=== PATIENT | male | born 1955 | race Two or more races ===

== ENCOUNTER 2019-06-13 17:53 | Inpatient (IN) | payer MEDICAID ==
[~2019-06-13] VITALS: Ht 165.1 cm; Wt 70.0 kg
[2019-06-13] MEDS ORDERED: ONDANSETRON HCL 4 MG/2 ML VIAL ONE (18:11)
[2019-06-13] MEDS ORDERED: MORPHINE SULF INJ 2 MG/ML SYRINGE 1ML ONE (18:11)
[2019-06-13] MEDS ORDERED: ONDANSETRON HCL 4 MG/2 ML VIAL IV ONE ×2 (18:15→20:15)
[2019-06-13] MEDS ORDERED: MORPHINE SULF INJ 2 MG/ML SYRINGE 1ML IV ONE ×2 (18:15→20:15)
[2019-06-13 18:44] LABS: Basophils # (auto) 0.1 uL; Basophils % (auto) 0.4 % (0.0-2.0); Eosinophils # (auto) 0.1 uL; Eosinophils % (auto) 0.8 % (0.0-7.0); Hematocrit 44.2 % (41.0-53.0); Hemoglobin 14.4 g/dL (13.5-17.5); Lymphocytes # (auto) 3.7 uL; Lymphocytes % (auto) 27.8 % (10.0-50.0); Mean Corpuscular Hemoglobin 29.4 pg (28.0-32.0); Mean Corpuscular Hgb Conc. 32.6 g/dL (32.0-36.0); Mean Corpuscular Volume 90.3 fL (80.0-100.0); Monocytes # (auto) 0.8 uL; Monocytes % (auto) 5.9 % (0.0-12.0); Neutrophils # (auto) 8.6 uL; Neutrophils % (auto) 65.1 % (37.0-80.0); Nucleated Red Blood Cells % 0.1 %; Platelet Count (auto) 273 10^3/uL (140-450); Red Cell Distribution Width 14.3 % (11.8-14.3); White Blood Cell 13.2 10^3/uL (4.4-10.8)
[2019-06-13 19:00] LABS: Albumin 3.7 g/dL (3.4-5.0); Anion Gap 16 (5-15); Blood Urea Nitrogen 29 mg/dL (7-18); Calcium 8.4 mg/dL (8.5-10.1); Carbon Dioxide 20 mmol/L (21-32); Chloride 106 mmol/L (98-107); Glucose 251 mg/dL (74-106); Potassium 3.4 mmol/L (3.5-5.1); Sodium 142 mmol/L (136-145)
[2019-06-13 19:02] LABS: Alanine Aminotransferase 131 U/L (16-61); Aspartate Aminotransferase 123 U/L (15-37); BUN/Creatinine Ratio 18.4; GFR African American 57 mL/min; GFR Non-African American 47 mL/min; INR 1.04 (0.9-1.15); Partial Thromboplastin Time 24.9 sec (23.64-32.05)
[2019-06-13 19:06] LABS: Alkaline Phosphatase 92 U/L (45-117); Bilirubin, Total 0.4 mg/dL (0.2-1.0); Total Protein 6.9 g/dL (6.4-8.2)
[2019-06-13] MEDS ORDERED: AMIODARONE HCL 900 MG in DEXTROSE 500 ML IV SCH (20:30)
[2019-06-13] MEDS ORDERED: POTASSIUM CHL 20 Meq TABLET PO ONE (21:15)
[2019-06-13] MEDS ORDERED: TEMAZEPAM 15 MG CAP PO PRN (21:15)
[2019-06-13] MEDS ORDERED: ONDANSETRON HCL 4 MG/2 ML VIAL IV PRN (21:15)
[2019-06-13] MEDS ORDERED: MORPHINE SULF INJ 2 MG/ML SYRINGE 1ML IV PRN (21:15)
[2019-06-13] MEDS ORDERED: DEXTROSE (50%) 50ML SYRG IV PRN (21:15)
[2019-06-13] MEDS ORDERED: NITROGLYCERIN 0.4 MG SL TAB SL PRN (21:15)
[2019-06-13] MEDS ORDERED: ACETAMINOPHEN 325 MG TAB PO PRN (21:15)
[2019-06-13] MEDS ORDERED: PRAVASTATIN SODIUM 20 MG TAB PO SCH (22:00)
[2019-06-13] MEDS: SODIUM CHLORIDE 0.9% 1,000 ML IV SCH (22:09)
[2019-06-13] MEDS ORDERED: ATORVASTATIN 20 MG TAB PO ONE (22:15)
--- NOTE | 2019-06-13 22:40 | NUR ---
Admit to [facility] admitted to [facility] via gurney on child monitor, and portable 02. Patient transferred to bed, connected to unit monitoring and oxygen, and weighed by bedscale. Patient oriented to Suyz Vail, primary RN, unit, room, bed, and unit policies regarding patient care and visiting hours. All questions and concerns addressed, patient verbalized understanding. NOTE: PIV's to the right AC infusing amiodarone drip @ 33 ml/hr and NS @ 75 ml/hr, IO to the left lower leg noted.
[2019-06-13 23:46] VITALS: BP 135/80
[2019-06-14] VITALS: BP 128/84
--- NOTE | 2019-06-14 | NUR ---
accucheck 180, refused insulin coverage, per pt his blood sugar drops below 60's at around 0400.
[2019-06-14] MEDS ORDERED: INSU1INJ19 SC (01:19)
[2019-06-14] MEDS ORDERED: GABA-339 PO (01:19)
[2019-06-14] MEDS ORDERED: METF-371 PO (01:19)
[2019-06-14] MEDS ORDERED: PRAV20TA3 PO (01:19)
[2019-06-14] MEDS ORDERED: METO-158 PO (01:19)
[2019-06-14] MEDS ORDERED: LISI2.5T47 PO (01:19)
[2019-06-14] MEDS: HYDROcodone-ACET 5/325MG TAB PO PRN ×2 (01:51→07:14)
--- NOTE | 2019-06-14 01:51 | NUR ---
C/O CHEST PAIN FROM COMPRESSION, SCALE 8/10, NORCO 5MG GIVEN PO ORDERED PRN.
[2019-06-14 04:00] VITALS: BP 124/73
[2019-06-14 05:48] LABS: Basophils # (auto) 0 uL; Basophils % (auto) 0.1 % (0.0-2.0); Eosinophils # (auto) 0 uL; Hematocrit 40.5 % (41.0-53.0); Hemoglobin 13.5 g/dL (13.5-17.5); Lymphocytes # (auto) 0.7 uL; Lymphocytes % (auto) 4.5 % (10.0-50.0); Mean Corpuscular Hemoglobin 29.5 pg (28.0-32.0); Mean Corpuscular Hgb Conc. 33.3 g/dL (32.0-36.0); Mean Corpuscular Volume 88.7 fL (80.0-100.0); Monocytes % (auto) 6.6 % (0.0-12.0); Neutrophils # (auto) 13.9 uL; Neutrophils % (auto) 88.8 % (37.0-80.0); Platelet Count (auto) 255 10^3/uL (140-450); Red Blood Cells 4.57 10^6/uL (4.5-5.90); Red Cell Distribution Width 13.8 % (11.8-14.3); White Blood Cell 15.6 10^3/uL (4.4-10.8)
[2019-06-14] MEDS: ACCU-CHEK COMFORT CURVE STRIP VI SCH ×5 (06:00→23:36)
[2019-06-14 06:08] LABS: BUN/Creatinine Ratio 32.7; Calcium 7.8 mg/dL (8.5-10.1); Potassium 4.4 mmol/L (3.5-5.1)
[2019-06-14] MEDS: InsuLIN REG 1unit/0.01ml Soln (100units/ml) SC SCH ×4 (06:42→18:42)
--- NOTE | 2019-06-14 07:00 | NUR ---
INTRA OSSEOUS IV IN THE LEFT LEG REMOVED, PRESSURE DRESSING APPLIED TO SITE
--- NOTE | 2019-06-14 07:50 | NUR ---
REPORT REPORT RECEIVED FROM NIGHT RNCHAN. PT RESTING IN BED WITH C/O CHEST DISCOMFORT. RECEIVED A [employer] AT 0714. WILL GIVE IT A BIT LONGER TO WORK. PT AWARE.
[2019-06-14 08:00] VITALS: BP 135/74
--- NOTE | 2019-06-14 08:15 | NUR ---
ASSESSMENT PT AWAKE AND A/O X3. ABLE TO MOVE ALL EXTREMITIES AND HELP MOVE SELF IN BED. C/O CHEST DISCOMFORT AND PT DID RECEIVE CPR AND WAS DEFIBRILLATED X2 YESTERDAY. TOO EARLY TO MEDICATE BY CURRENT ORDERS. LUNGS CLEAR THROUGHOUT. O2 AT 2 L/M VIA NC BUT PT CURRENTLY HAS IT OFF AND O2 SAT IS 100%. WILL CONTINUE TO MONITOR. TELE SR AT 92. PALPABLE PULSES TO ALL EXTREMITIES. NO EDEMA NOTED. ABD SOFT WITH + BOWEL SOUNDS. LAST BM WAS 06/13. PT VOIDS VIA URINAL. CURRENTLY 350 ML CLEAR YELLOW URINE. PT WITH NS AT 75 ML/HR, WITH LAC IV SITE BENIGN. ALSO WITH #20 TO THE RIGHT HAND.
[2019-06-14] MEDS ORDERED: GABAPENTIN 300 MG CAP PO SCH (10:00)
[2019-06-14] MEDS: PANTOPRAZOLE 40 MG TAB PO SCH (10:11)
[2019-06-14] MEDS: ASPirin 81 mg TAB PO SCH (10:11)
[2019-06-14] MEDS: METOPROLOL SUCCINATE XL 50 MG TAB PO SCH (10:11)
[2019-06-14] MEDS: LISINOPRIL 5 MG TAB PO SCH (10:12)
--- NOTE | 2019-06-14 11:30 | NUR ---
INSULIN HELD PT REFUSED INSULIN ATER DUE TO TENDENCY TO HAVE LOW BLOOD GLUCOSE THROUGHOUT NIGHT. Addendum: 06/15/19 at 0131 by THAIS CLEVELAND RN RN AFTER BS OF 166 Addendum: 06/15/19 at 0132 by THAIS CLEVELAND RN RN MISTAKEN TIME. 2330
[2019-06-14 12:00] VITALS: BP 145/76
--- NOTE | 2019-06-14 12:00 | NUR ---
RECEIVED A PHONE CALL FROM DR ZAMBRANO, PT'S QA INTERN. INFORMED HIM OF EVENTS LEADING UP TO THE PT'S ADMISSION TO THE HOSPITAL. HE STATES TO LET DR WOOD DO THE ANGIOGRAM AND HE WILL RADAR AIR TRAFFIC CONTROLLER CARE AFTER , IF OKAY WITH DR WOOD. NOTIFIED RIC LOPEZ, CARDIOLOGY BILINGUAL SPEECH LANGUAGE PATHOLOGIST.
[2019-06-14] MEDS: MORPHINE SULF INJ 2 MG/ML SYRINGE 1ML IV PRN (12:05)
[2019-06-14] MEDS: SODIUM CHLORIDE 0.9% 1,000 ML IV SCH ×2 (12:14→23:55)
[2019-06-14] MEDS ORDERED: KETOROLAC TROMETH 30 MG/ML 1ML VIAL IV ONE (12:45)
[2019-06-14] MEDS ORDERED: CLOPIDOGREL 300 MG TAB PO ONE (15:45)
[2019-06-14] MEDS ORDERED: ENOXAPARIN SOD 60 MG/0.6 ML SYRINGE SC ONE (15:45)
[2019-06-14] MEDS ORDERED: ASPirin 81 mg TAB PO ONE (15:45)
[2019-06-14 16:00] VITALS: BP 126/71
--- NOTE | 2019-06-14 16:00 | NUR ---
PT SEEN AND EXAMINED BY DR ZAMBRANO. HE WAS MADE AWARE OF PENDING ANGIOGRAM TOMORROW BUT NO TIME YET. HE STATED THAT IF IT IS DONE EARLY THEN HE CAN PLACE A DEFIBRILLATOR AT 1400. WILL HAE THE DAY RN TOMORROW CHEK WITH AIRCRAFT RIGGING AND CONTROLS MECHANIC AND TRY TO COORDINATE THAT.
--- NOTE | 2019-06-14 19:02 | NUR ---
CONSENTS SIGNED FOR TOMORROW'S [facility].
[2019-06-14] MEDS ORDERED: DEXTROSE (50%) 50ML SYRG IV PRN (19:15)
--- NOTE | 2019-06-14 19:15 | NUR ---
OPENING PT AWAKE AND A/O X4. ABLE TO MOVE ALL EXTREMITIES AND HELP MOVE SELF IN BED. LUNGS CLEAR THROUGHOUT, O2 AT 2 L/M VIA NC 94%. SR ON CRYPTOLOGIC TECHNICIAN TECHNICAL. PALPABLE PULSES X4 EXTREMITIES. NO EDEMA NOTED. ABD SOFT, BOWEL SOUNDS PRESENT. PT VOIDS VIA URINAL. PT WITH NS AT 75 ML/HR. EDUCATED TO USE CALL LIGHT FOR ANY ASSISTANCE BEFORE GETTING OUT OF BED. VERBALIZED UNDERSTANDING. BED IN LOWEST LOCKED POSITION. IN FULL VIEW OF NURSES STATION. VSS. NO PAIN NOTED AT THIS TIME. WILL CONTINUE TO MONITOR.
--- NOTE | 2019-06-14 19:46 | NUR ---
REPORT REPORT GIVEN TO THAIS FARRIS RN.
[2019-06-14 20:33] VITALS: BP 138/80
[2019-06-14] MEDS ORDERED: ATORVASTATIN 20 MG TAB PO SCH (22:00)
[2019-06-14] MEDS: ENOXAPARIN SOD 80 MG/0.8ML SYRINGE SC SCH (22:00)
--- NOTE | 2019-06-14 22:00 | NUR ---
TORADOL RESPONDED WELL TO TORADOL, CHEST WALL PAIN ALLEVIATED. PAIN FROM 9/0-10 TO 0/0-10
[2019-06-14] MEDS: GABAPENTIN 300 MG CAP PO SCH (22:02)
--- NOTE | 2019-06-14 23:30 | NUR ---
INSULIN HELD PT REFUSED INSULIN AFTER GLUCOSE OF 166, DUE TO TENDENCY TO HAVE LOW BLOOD GLUCOSE THROUGHOUT NIGHT.
--- NOTE | 2019-06-15 00:23 | NUR ---
IV insertion IV access obtained, via clean sterile technique by inserting 20 gauge catheter at THE RIGHT FOREARM after 1 attempt. IV secured properly. No trauma to site. Patient tolerated well. IV FLUSHED, PATENT AND SALINE LOCKED.
[2019-06-15 00:26] VITALS: BP 143/74
[2019-06-15] MEDS: SODIUM CHLORIDE 0.9% 1,000 ML IV SCH ×2 (01:59→18:00)
[2019-06-15] MEDS: MORPHINE SULF INJ 2 MG/ML SYRINGE 1ML IV PRN (03:20)
[2019-06-15] MEDS ORDERED: KETOROLAC TROMETH 30 MG/ML 1ML VIAL IV PRN (03:45)
[2019-06-15 04:00] VITALS: BP 134/79
[2019-06-15] MEDS: ACCU-CHEK COMFORT CURVE STRIP VI SCH ×4 (05:18→23:54)
[2019-06-15] MEDS: InsuLIN REG 1unit/0.01ml Soln (100units/ml) SC SCH ×5 (05:36→23:54)
[2019-06-15 05:56] LABS: Basophils # (auto) 0 uL; Basophils % (auto) 0.3 % (0.0-2.0); Eosinophils # (auto) 0.2 uL; Eosinophils % (auto) 1.8 % (0.0-7.0); Hematocrit 36.1 % (41.0-53.0); Hemoglobin 12.2 g/dL (13.5-17.5); Lymphocytes # (auto) 1.5 uL; Lymphocytes % (auto) 12.7 % (10.0-50.0); Mean Corpuscular Hemoglobin 30.1 pg (28.0-32.0); Mean Corpuscular Hgb Conc. 33.9 g/dL (32.0-36.0); Mean Corpuscular Volume 88.8 fL (80.0-100.0); Monocytes % (auto) 8.4 % (0.0-12.0); Neutrophils # (auto) 8.8 uL; Neutrophils % (auto) 76.8 % (37.0-80.0); Platelet Count (auto) 206 10^3/uL (140-450); Red Blood Cells 4.06 10^6/uL (4.5-5.90); Red Cell Distribution Width 14.1 % (11.8-14.3); White Blood Cell 11.5 10^3/uL (4.4-10.8)
[2019-06-15 06:05] LABS: INR 1.06 (0.9-1.15)
[2019-06-15 06:10] LABS: Calcium 7.5 mg/dL (8.5-10.1); Magnesium 2.2 mg/dL (1.6-2.6); Potassium 4.6 mmol/L (3.5-5.1)
[2019-06-15 06:12] LABS: BUN/Creatinine Ratio 23.3
[2019-06-15 06:15] LABS: Bilirubin, Total 0.6 mg/dL (0.2-1.0); Total Protein 5.8 g/dL (6.4-8.2)
--- NOTE | 2019-06-15 07:30 | NUR ---
RECEIVED PATIENT SITTING UP IN THE BED, O2 AT 2L BY N/C, A/O TIMES 4, USED HOSPITAL STAFF TO TRANSLATE FOR ME, STATES HE CAN USE THE URINAL, AND BR, no pain at this time,
--- NOTE | 2019-06-15 07:50 | NUR ---
SPOKE WITH JOSEPH BANEGAS IN THE WATER SOFTENER INSTALLER AND STATED THE PATIENT WOULD NOT BE GOING FOR THE HEART CATH THIS MORNING MAYBE NOT UNTIL 1200 AND STATED TO FEED HIM A LIGHT BREAKFAST, CEREAL WAS GIVEN AND A JELL-O
[2019-06-15 08:00] VITALS: BP 141/87
--- NOTE | 2019-06-15 08:05 | NUR ---
DR PROOD IN TO SEE THE PATIENT AND STATED TO GET A DRUG SCREEN DONE
--- NOTE | 2019-06-15 08:30 | NUR ---
patient was given jell-0 and cereal, ate without any problem
--- NOTE | 2019-06-15 08:30 | NUR ---
INTO VISIT WITH THE PATIENT, WHO IS SITTING UP ON THE SIDE OF THE BED EATING A LIGHT BREAKFAST
--- NOTE | 2019-06-15 09:09 | NUR ---
IRMA Ferrer HUMAN RESOURCES OPERATIONS COORDINATOR IN TO SEE THE PATIENT
[2019-06-15] MEDS: ENOXAPARIN SOD 80 MG/0.8ML SYRINGE SC SCH ×2 (09:15→21:27)
[2019-06-15] MEDS: ASPirin 81 mg TAB PO SCH (09:32)
[2019-06-15] MEDS: METOPROLOL SUCCINATE XL 50 MG TAB PO SCH (09:33)
[2019-06-15] MEDS: PANTOPRAZOLE 40 MG TAB PO SCH (09:33)
[2019-06-15] MEDS: LISINOPRIL 5 MG TAB PO SCH (09:34)
[2019-06-15] MEDS: HYDROcodone-ACET 5/325MG TAB PO PRN (09:35)
--- NOTE | 2019-06-15 09:35 | NUR ---
EXPLAIN MEDICATIONS TO THE PATIENT REGARDING THE DOSAGE, USAGE AND THE SIDE EFFECTS, TRANSLATED TO HIM AND THEY BOTH VERBALIZED THEY UNDERSTOOD AND GAVE NORCO FOR PAIN TO THE CHEST 05/24 STATES IT'S MUSCLE PAIN FROM HAVING THE CPR
[2019-06-15] MEDS ORDERED: CLOPIDOGREL BISULFATE 75 MG TAB PO SCH (10:00)
[2019-06-15 10:06] LABS: Alcohol, Urine < 3.0 mg/dL (0-5); Amphetamine Screen, Urine NEGATIVE (NEGATIVE); Barbiturate Scree,Urine NEGATIVE (NEGATIVE); Benzodiazephine Screen, Urine NEGATIVE (NEGATIVE); Cannabinoid Screen, Urine NEGATIVE (NEGATIVE); Cocaine Screen, Urine NEGATIVE (NEGATIVE); Opiate Scree,Urine NEGATIVE (NEGATIVE); Phencyclidine Screen, Urine NEGATIVE (NEGATIVE)
--- NOTE | 2019-06-15 10:30 | NUR ---
RECHECKED B/P AFTER MEDS 140/86
--- NOTE | 2019-06-15 10:30 | NUR ---
SITTING UP IN THE CHAIR BESIDE THE WINDOW WITH
--- NOTE | 2019-06-15 11:30 | NUR ---
SITTING UP IN THE CHAIR BESIDE HIM
[2019-06-15 12:00] VITALS: BP 144/86
--- NOTE | 2019-06-15 12:16 | NUR ---
BS 144 DISCUSSED WITH PATIENT AND HIS AND THEY REFUSED INSULIN BECAUSE HE IS NPO AND STATES HE'S SUGAR WILL GO DOWN WITH INSULIN AND NO FOOD, SITTING UP IN THE CHAIR
--- NOTE | 2019-06-15 13:00 | NUR ---
gotten back into the bed
--- NOTE | 2019-06-15 13:13 | NUR ---
mediated with Toradol 15mg waiting for patient to go to laborer
--- NOTE | 2019-06-15 14:09 | NUR ---
patient states he is having no pain, explain to him and his that the bed laborer is saying it will be another hour wait i that i was sorry, verblized that they understood
[2019-06-15] MEDS ORDERED: IOHEXOL 350 MG/ML 100ML IJ ONE (14:31)
[2019-06-15] MEDS ORDERED: LIDOCAINE 2%HCL (LOCAL ANESTH.) INJ 20ML MDV ONE (14:31)
--- NOTE | 2019-06-15 14:31 | NUR ---
RADIOLOGY TECH PERSONNEL HERE TALKING TO THE PATIENT AND ARE GOING TO TAKE HIM T O THE RADIOLOGY TECH
--- NOTE | 2019-06-15 14:55 | NUR ---
TAKEN TO THE RUFFLING MACHINE OPERATOR BY THE BED
[2019-06-15] MEDS ORDERED: SODIUM CHL 0.9% 0 ML ONE (14:57)
[2019-06-15] MEDS ORDERED: ANGIOMAX 250 MG VIAL IV ONE (14:57)
[2019-06-15] MEDS ORDERED: MIDAZOLAM HCL 1MG/1ML-2 ML VIAL ONE (14:57)
[2019-06-15] MEDS ORDERED: fentaNYL CITRATE 100 MCG/2 ML VL ONE (14:57)
[2019-06-15 16:05] VITALS: BP 149/90
--- NOTE | 2019-06-15 16:08 | NUR ---
PATIENT BACK FROM THE ASSOCIATE DIRECTOR FINANCE WITH DIAGNOSIS OF MULTI VESSEL DISEASE AND DR WOO CONSULTED FOR CABG AND PATIENT BOTH AWARE ,DRESSING TO THE RT GROIN DRY AND INTACT SIT BENIGN
--- NOTE | 2019-06-15 16:15 | NUR ---
IN TO SEE THE PATIENT
--- NOTE | 2019-06-15 17:30 | NUR ---
DAUGHTERS IN TO VISIT WITH THE PATIENT RT GROIN SITE BENIGN SOFT TO THE TOUCH AND DRESSING DRY AND INTACT, NO COMPLAINTS OF PAIN REMINDED TO KEEP THE RT LEG STRAIGHT
--- NOTE | 2019-06-15 18:00 | NUR ---
DR JACKSON IN TO SEE THE PATIENT AND GAVE ORDERS, PATIENT SITTING UP ON THE SIDE OF THE BED
--- NOTE | 2019-06-15 18:20 | NUR ---
DR ZAMBRANO INTO SEE THE PATIENT AND ORDERED A LIFE VEST FOR WHEN HE GOES HOME, WHICH WAS ORDERED
--- NOTE | 2019-06-15 18:30 | NUR ---
PATIENT SITTING UP IN THE CHAIR EATING HIS DINNER, , STATES HE WAS SO HUNGRY, NS INFUSING INTO THE 50ML/HR RFA BY THE IV PUMP, GETS UP TO THE BR, DRESSING TO THE RT GROIN DRY AND INTACT, LFA 20G SALINE LOCK FLUSHED AND PATENT, O2 BY R/A, WILL CONTINUE TO MONITOR AND GIVE REPORT TOT HE NEXT SHIFT
--- NOTE | 2019-06-15 19:00 | NUR ---
OPENING NOTE ASSUMED CARE OF PATIENT AT THIS TIME. REPORT RECEIVED FROM DAY SHIFT RN. POC REVIEWED. HEAD TO TOE ASSESSMENT COMPLETE, SEE INTERVENTION SPREADSHEET FOR COMPLETE DETAILS. RECEIVED PT ALERT AND ORIENTED X. PT AMBULATORY. IV SITES BENIGN. VSS. URINAL AT BEDSIDE. BED LOCKED AND IN LOWEST POSITION, SAFETY PRECAUTIONS IN PLACE. WILL MONITOR PT CAREFULLY.
[2019-06-15 20:00] VITALS: BP 157/83
[2019-06-15] MEDS: HYDROcodone-ACET 5/325MG TAB PO SCH (21:26)
[2019-06-15] MEDS: ATORVASTATIN 20 MG TAB PO SCH (21:26)
[2019-06-15] MEDS: ALPRAZolam 0.25 MG TAB PO SCH (21:26)
[2019-06-15] MEDS: GABAPENTIN 300 MG CAP PO SCH (21:27)
--- NOTE | 2019-06-15 21:45 | NUR ---
PT TAKEN TO CT AND RETURNED TO [facility] 265 WITH NO INCIDENT Addendum: 06/15/19 at 2219 by ALBERTO KELLEY RN *ROOM
[2019-06-15] MEDS ORDERED: HYDROcodone-ACET 5/325MG TAB PO PRN (22:00)
[2019-06-16] VITALS (8 sets, daily range): BP systolic 133–158; BP diastolic 75–91
[2019-06-16] MEDS: HYDROcodone-ACET 5/325MG TAB PO SCH ×6 (02:00→22:56)
[2019-06-16 05:24] LABS: Basophils # (auto) 0 uL; Basophils % (auto) 0.4 % (0.0-2.0); Eosinophils # (auto) 0.3 uL; Eosinophils % (auto) 2.8 % (0.0-7.0); Hematocrit 37.1 % (41.0-53.0); Hemoglobin 12.5 g/dL (13.5-17.5); Lymphocytes # (auto) 1.7 uL; Lymphocytes % (auto) 17.8 % (10.0-50.0); Mean Corpuscular Hemoglobin 29.7 pg (28.0-32.0); Mean Corpuscular Hgb Conc. 33.8 g/dL (32.0-36.0); Mean Corpuscular Volume 87.9 fL (80.0-100.0); Monocytes # (auto) 0.9 uL; Monocytes % (auto) 9.3 % (0.0-12.0); Neutrophils # (auto) 6.5 uL; Neutrophils % (auto) 69.7 % (37.0-80.0); Platelet Count (auto) 222 10^3/uL (140-450); Red Blood Cells 4.22 10^6/uL (4.5-5.90); Red Cell Distribution Width 13.8 % (11.8-14.3); White Blood Cell 9.4 10^3/uL (4.4-10.8)
[2019-06-16 05:52] LABS: Potassium 4.2 mmol/L (3.5-5.1)
[2019-06-16] MEDS: ALPRAZolam 0.25 MG TAB PO SCH ×3 (05:58→22:55)
[2019-06-16] MEDS: InsuLIN REG 1unit/0.01ml Soln (100units/ml) SC SCH ×3 (06:00→18:00)
[2019-06-16] MEDS: ACCU-CHEK COMFORT CURVE STRIP VI SCH ×3 (06:01→18:00)
[2019-06-16 06:07] LABS: Albumin 3.1 g/dL (3.4-5.0); BUN/Creatinine Ratio 17.8; Bilirubin, Total 0.8 mg/dL (0.2-1.0); Total Protein 6.3 g/dL (6.4-8.2)
--- NOTE | 2019-06-16 08:00 | NUR ---
Opening Shift Note Assumed care of patient, awake and alert. Patient A&Ox4. Patient on the monitor. Patient on 2L NC saturation at 94%. IV left forearm 20G saline locked and right forearm 20G running NS at 50ml/hr, both IV's patent, clean, dry, and intact. No S/S of distress/SOB or pain. Instructed on POC and to call for assist. Bed locked and in the lowest position, side rails up x2, call light with in reach. Will continue to monitor.
--- NOTE | 2019-06-16 08:30 | NUR ---
Patient sitting up in bed eating breakfast independently. Will continue to monitor.
--- NOTE | 2019-06-16 10:00 | NUR ---
Medication dosages, usages, and side effects, explained to patient. Patient verbalized understanding. Will continue to monitor.
[2019-06-16] MEDS: ASPirin 81 mg TAB PO SCH (10:27)
[2019-06-16] MEDS: PANTOPRAZOLE 40 MG TAB PO SCH (10:27)
[2019-06-16] MEDS: LISINOPRIL 5 MG TAB PO SCH (10:28)
[2019-06-16] MEDS: ENOXAPARIN SOD 80 MG/0.8ML SYRINGE SC SCH ×2 (10:28→22:56)
[2019-06-16] MEDS: METOPROLOL SUCCINATE XL 50 MG TAB PO SCH (10:28)
[2019-06-16] MEDS: SODIUM CHLORIDE 0.9% 1,000 ML IV SCH (11:00)
--- NOTE | 2019-06-16 11:15 | NUR ---
Dr. Hyde at bedside.
--- NOTE | 2019-06-16 12:30 | NUR ---
Patient sitting up in bed eating breakfast independently. Will continue to monitor.
--- NOTE | 2019-06-16 14:30 | NUR ---
Patient sitting up in bedside chair watching TV. No S/S of pain/SOB or distress. Will continue to monitor.
--- NOTE | 2019-06-16 17:00 | NUR ---
Patient resting at this time. No S/S of pain/SOB or distress at this time. Will continue to monitor.
--- NOTE | 2019-06-16 18:29 | NUR ---
End of shift note: Patient sitting up in bedside chair eating dinner independently. Patient A&Ox4. Patient on the monitor. Patient on room air saturation at 96%. IV left forearm 20G saline locked and right forearm 20G running NS at 50ml/hr, both IV's patent, clean, dry, and intact. No S/S of distress/SOB or pain. Bed locked and in the lowest position, side rails up x2, call light with in reach. Report to be given to cnc machinist 2nd shift RN. Will continue to monitor.
--- NOTE | 2019-06-16 20:25 | NUR ---
Suddenly pt stated chest pain. Shannon BANEGAS in isolation room with other pt so Tonja BANEGAS stepped in to assess. Pt was asked if pain was worse when he took a breath in, he stated yes. To be safe, EKG was performed, Nitro sublingual was given, and Morphine 2mg IV was given. EKG stated Normal sinus rhythm at this time. After all were performed pt stated he had no pain and is relaxing speaking with normal breathing to family. Reported to Shannon BANEGAS.
--- NOTE | 2019-06-16 21:01 | NUR ---
hospitalist returned call hospitalist notified no new orders received.
[2019-06-16] MEDS: ATORVASTATIN 20 MG TAB PO SCH (22:56)
[2019-06-16] MEDS: GABAPENTIN 300 MG CAP PO SCH (22:56)
[2019-06-17] VITALS (11 sets, daily range): BP systolic 127–159; BP diastolic 82–93
[2019-06-17] MEDS: HYDROcodone-ACET 5/325MG TAB PO SCH ×6 (01:20→21:33)
[2019-06-17 05:58] LABS: Basophils # (auto) 0 uL; Basophils % (auto) 0.4 % (0.0-2.0); Eosinophils # (auto) 0.2 uL; Eosinophils % (auto) 2.2 % (0.0-7.0); Hematocrit 40.5 % (41.0-53.0); Hemoglobin 13.9 g/dL (13.5-17.5); Lymphocytes # (auto) 1.8 uL; Mean Corpuscular Hemoglobin 30.2 pg (28.0-32.0); Mean Corpuscular Hgb Conc. 34.3 g/dL (32.0-36.0); Mean Corpuscular Volume 88.2 fL (80.0-100.0); Monocytes # (auto) 0.9 uL; Monocytes % (auto) 8.3 % (0.0-12.0); Neutrophils # (auto) 7.8 uL; Neutrophils % (auto) 72.1 % (37.0-80.0); Platelet Count (auto) 241 10^3/uL (140-450); Red Blood Cells 4.59 10^6/uL (4.5-5.90); Red Cell Distribution Width 13.7 % (11.8-14.3); White Blood Cell 10.8 10^3/uL (4.4-10.8)
[2019-06-17] MEDS: InsuLIN REG 1unit/0.01ml Soln (100units/ml) SC SCH ×5 (06:00→23:39)
[2019-06-17] MEDS: SODIUM CHLORIDE 0.9% 1,000 ML IV SCH (06:00)
[2019-06-17] MEDS: ACCU-CHEK COMFORT CURVE STRIP VI SCH ×5 (06:13→23:39)
[2019-06-17] MEDS: ALPRAZolam 0.25 MG TAB PO SCH ×3 (06:13→21:33)
[2019-06-17 06:18] LABS: INR 0.96 (0.9-1.15); Partial Thromboplastin Time 32.2 sec (23.64-32.05)
[2019-06-17 06:23] LABS: Albumin 3.4 g/dL (3.4-5.0); BUN/Creatinine Ratio 16.7; Bilirubin, Total 0.8 mg/dL (0.2-1.0); Calcium 8.8 mg/dL (8.5-10.1); Potassium 4.3 mmol/L (3.5-5.1); Total Protein 7.3 g/dL (6.4-8.2)
--- NOTE | 2019-06-17 08:00 | NUR ---
Opening Shift Note Assumed care of patient, awake and alert. Patient A&Ox4. Patient on the monitor. Patient on room air saturation at 94%. IV left forearm 20G saline locked and right forearm 20G running NS at 50ml/hr, both IV's patent, clean, dry, and intact. No S/S of distress/SOB or pain. Instructed on POC and to call for assist. Bed locked and in the lowest position, side rails up x2, call light with in reach. Will continue to monitor.
--- NOTE | 2019-06-17 08:30 | NUR ---
Patient sitting up in bed eating breakfast independently. Will continue to monitor.
--- NOTE | 2019-06-17 10:00 | NUR ---
Medication dosages, usages, and side effects, explained to patient. Patient verbalized understanding. Will continue to monitor.
[2019-06-17] MEDS ORDERED: DOCUSATE SOD 100 MG CAP PO PRN (10:15)
--- NOTE | 2019-06-17 10:15 | NUR ---
Dr. Hyde at bedside.
[2019-06-17] MEDS: ASPirin 81 mg TAB PO SCH (10:30)
[2019-06-17] MEDS: PANTOPRAZOLE 40 MG TAB PO SCH (10:30)
[2019-06-17] MEDS: LISINOPRIL 5 MG TAB PO SCH (10:31)
[2019-06-17] MEDS: METOPROLOL SUCCINATE XL 50 MG TAB PO SCH (10:32)
[2019-06-17] MEDS: ENOXAPARIN SOD 80 MG/0.8ML SYRINGE SC SCH ×2 (10:40→21:34)
--- NOTE | 2019-06-17 11:00 | NUR ---
Dr. Leiva at bedside
--- NOTE | 2019-06-17 12:30 | NUR ---
Patient sitting up in bed eating lunch independently. Will continue to monitor.
--- NOTE | 2019-06-17 13:57 | NUR ---
Nutrition Assessment Notes please see attached link for complete assessment Est. Needs based on BW (72 kg): 6346-0286 kcal (23-25 kcal/kgBW), 72-79 gms pro (1.0-1.1 gms/kgBW). Will continue to monitor pertinent labs and reassess nutrient need prn Addendum: 06/17/19 at [address] Amended: Links added.
--- NOTE | 2019-06-17 16:30 | NUR ---
Patient resting at this time. No S/S of pain/SOB or distress. Will continue to monitor.
--- NOTE | 2019-06-17 18:30 | NUR ---
End of shift note: Patient sitting up in bedside chair eating dinner independently. Patient A&Ox4. Patient on the monitor. Patient on room air saturation at 964%. IV left forearm 20G saline locked and right forearm 20G running NS at 50ml/hr, both IV's patent, clean, dry, and intact. No S/S of distress/SOB or pain. Bed locked and in the lowest position, side rails up x2, call light with in reach. Report to be given to sawmill equipment operator RN. Will continue to monitor.
--- NOTE | 2019-06-17 19:24 | NUR ---
OPENING SHIFT RECEIVED REPORT FROM DAY SHIFT RN. ASSUMED CARE OF PATIENT. PATIENT IN BED WATCHING TV WITH NO SIGNS OR SYMPTOMS OF SOB, PAIN OR DISTRESS. CURRENTLY ON 2L 02 NASAL CANNULA, 02 SAT - 95%. LEFT FOREARM AND RIGHT FOREARM IV - CLEAN/DRY/INTACT. UPDATED PATIENT ON PLAN OF CARE. BED IN LOWEST POSITION, SIDE RAILS UP X2, CALL LIGHT WITHIN REACH. WILL CONTINUE TO MONITOR.
[2019-06-17] MEDS: ATORVASTATIN 20 MG TAB PO SCH (21:33)
[2019-06-17] MEDS: GABAPENTIN 300 MG CAP PO SCH (21:34)
[2019-06-18] VITALS: BP 152/89
[2019-06-18] MEDS: SODIUM CHLORIDE 0.9% 1,000 ML IV SCH ×2 (01:38→17:21)
[2019-06-18] MEDS: HYDROcodone-ACET 5/325MG TAB PO SCH ×6 (02:22→21:57)
[2019-06-18 04:00] VITALS: BP 126/75
[2019-06-18] MEDS: ALPRAZolam 0.25 MG TAB PO SCH ×3 (06:00→21:56)
[2019-06-18] MEDS: InsuLIN REG 1unit/0.01ml Soln (100units/ml) SC SCH ×4 (06:00→23:39)
[2019-06-18] MEDS: ACCU-CHEK COMFORT CURVE STRIP VI SCH ×4 (06:00→23:39)
[2019-06-18 06:06] LABS: BUN/Creatinine Ratio 18.5; Calcium 8.4 mg/dL (8.5-10.1)
--- NOTE | 2019-06-18 07:25 | NUR ---
END OF SHIFT REPORT GIVEN TODAY SHIFT RN. CARE ENDORSED.
[2019-06-18 08:00] VITALS: BP 147/86
--- NOTE | 2019-06-18 08:15 | NUR ---
Opening Shift Note Assumed care of patient, awake and alert, sitting at the edge of the bed, his at the bedside. No S/S of distress/SOB noted, room air O2 saturation 92-93%. Instructed on POC and to call for assist PRN, will continue to monitor for changes Q1hr and PRN.
[2019-06-18] MEDS: ASPirin 81 mg TAB PO SCH (09:31)
[2019-06-18] MEDS: LISINOPRIL 5 MG TAB PO SCH (09:31)
[2019-06-18] MEDS: PANTOPRAZOLE 40 MG TAB PO SCH (09:31)
[2019-06-18] MEDS: ENOXAPARIN SOD 80 MG/0.8ML SYRINGE SC SCH ×2 (09:32→21:57)
[2019-06-18] MEDS: METOPROLOL SUCCINATE XL 50 MG TAB PO SCH (09:32)
--- NOTE | 2019-06-18 09:45 | NUR ---
Patient had breakfast around 100%, no N/V noted, IS provided, will teach later due to pain 03/24 when taking deep breathing, [place] provided as routine. Will continue to monitor and care.
--- NOTE | 2019-06-18 09:58 | NUR ---
[employer] Vest: faxed [employer] packet to [employer]
--- NOTE | 2019-06-18 10:30 | NUR ---
Dr. Hyde at the bedside, plan of care discussed with patient and his , they made aware, will call Dr. Noonan for consultation again today. Will continue to monitor and care.
--- NOTE | 2019-06-18 10:40 | NUR ---
Padmini LEMUS for Dr. Maciel at the bedside, plan of care discussed with patient and his . Will continue to monitor and care. Addendum: 06/18/19 at 1209 by JAKE BUNDY RN RN Padmini Escobar
[2019-06-18] MEDS ORDERED: hydrALAZINE HCL 20 MG/ML VL IV PRN (10:45)
--- NOTE | 2019-06-18 11:06 | NUR ---
Dr. Dunbar at the bedside, plan of care discussed with patient and his families, plan for CABG on at 8 am, last dose of Lovenox will be on 06/20/19 at 10.00 am then stop. Will continue to monitor and care.
--- NOTE | 2019-06-18 11:57 | NUR ---
PATRICK faxed over packet request to send auth to [facility]
[2019-06-18 12:00] VITALS: BP 146/87
--- NOTE | 2019-06-18 12:50 | NUR ---
Patient sitting on the chair for having Lunch, his at the bedside.
--- NOTE | 2019-06-18 13:30 | NUR ---
Dr. Noonan at the bedside, plan of care discussed with patient and his , they made aware. Will continue to monitor and care.
--- NOTE | 2019-06-18 14:00 | NUR ---
Patient sitting on th chair, watching TV with his , refused Xanax and [place] at this time, will continue to monitor and care, no complaining of chest pain noted.
[2019-06-18 16:00] VITALS: BP 152/85
--- NOTE | 2019-06-18 17:59 | NUR ---
After Hydralazine given, patient complaining headache and palpitation, HR increased from 80 to 95-100, BP 164/83 mmHg after giving medication, patient went back to the bed, paged and talked to Odalis LEMUS made aware about his side effect from medication, received new order, patient and his families made aware. Will continue to monitor and care.
[2019-06-18] MEDS ORDERED: cloNIDine HCL 0.1 MG TAB PO PRN (18:15)
--- NOTE | 2019-06-18 18:57 | NUR ---
Patient sitting up on the edge of the bed for having Dinner, no N/V noted, patient stated that feeling better, no headache noted, HR 100-105/min, BP 161/80 mmHg, will continue to monitor and F/U with BP when resting.
--- NOTE | 2019-06-18 19:18 | NUR ---
OPENING SHIFT RECEIVED REPORT FROM DAY SHIFT RN. ASSUMED CARE OF PATIENT. PATIENT IN BED WATCHING TV WITH NO SIGNS OR SYMPTOMS OF SOB, PAIN OR DISTRESS. CURRENTLY ON ROOM AIR, 02 SAT - 94%. LEFT FOREARM AND RIGHT FOREARM IV - CLEAN/DRY/INTACT. UPDATED PATIENT ON PLAN OF CARE. BED IN LOWEST POSITION, SIDE RAIL UP X2, CALL LIGHT WITHIN REACH. WILL CONTINUE TO MONITOR.
[2019-06-18 20:00] VITALS: BP 139/82
[2019-06-18] MEDS: GABAPENTIN 300 MG CAP PO SCH (21:57)
[2019-06-18] MEDS: ATORVASTATIN 20 MG TAB PO SCH (21:57)
[2019-06-19] VITALS: BP 127/77
[2019-06-19] MEDS: HYDROcodone-ACET 5/325MG TAB PO SCH ×6 (02:00→21:31)
[2019-06-19 04:00] VITALS: BP 121/80
[2019-06-19 05:27] LABS: Basophils # (auto) 0 uL; Basophils % (auto) 0.5 % (0.0-2.0); Eosinophils # (auto) 0.3 uL; Eosinophils % (auto) 3.5 % (0.0-7.0); Hematocrit 40.3 % (41.0-53.0); Hemoglobin 13.6 g/dL (13.5-17.5); Lymphocytes # (auto) 1.6 uL; Lymphocytes % (auto) 21.2 % (10.0-50.0); Mean Corpuscular Hemoglobin 29.8 pg (28.0-32.0); Mean Corpuscular Hgb Conc. 33.8 g/dL (32.0-36.0); Mean Corpuscular Volume 88.1 fL (80.0-100.0); Monocytes # (auto) 0.8 uL; Monocytes % (auto) 10.9 % (0.0-12.0); Neutrophils # (auto) 4.8 uL; Neutrophils % (auto) 63.9 % (37.0-80.0); Platelet Count (auto) 280 10^3/uL (140-450); Red Blood Cells 4.57 10^6/uL (4.5-5.90); Red Cell Distribution Width 13.5 % (11.8-14.3); White Blood Cell 7.5 10^3/uL (4.4-10.8)
[2019-06-19 05:50] LABS: Albumin 3.3 g/dL (3.4-5.0); BUN/Creatinine Ratio 17.9; Calcium 9.1 mg/dL (8.5-10.1)
--- NOTE | 2019-06-19 05:50 | NUR ---
MORNING CARE PATIENT REFUSED MORNING CARE AT THIS TIME. CLEAN LINEN LEFT AT BEDSIDE. WILL CONTINUE TO MONITOR.
[2019-06-19] MEDS: InsuLIN REG 1unit/0.01ml Soln (100units/ml) SC SCH ×4 (05:51→23:41)
[2019-06-19] MEDS: ALPRAZolam 0.25 MG TAB PO SCH ×3 (05:52→21:31)
[2019-06-19] MEDS: ACCU-CHEK COMFORT CURVE STRIP VI SCH ×4 (05:52→23:41)
[2019-06-19 05:53] LABS: Bilirubin, Total 0.9 mg/dL (0.2-1.0)
[2019-06-19] MEDS ORDERED: ceFAZolin 1GM 2 GM in D5W 5% 50 ML IV ONE (06:00)
[2019-06-19] MEDS ORDERED: VANCOMYCIN 1GM/250ML 250 ML IV ONE (06:00)
[2019-06-19] MEDS ORDERED: MORPHINE SULF INJ 2 MG/ML SYRINGE 1ML IV PRN (06:00)
[2019-06-19 06:43] LABS: Basophils # (auto) 0 uL; Basophils % (auto) 0.5 % (0.0-2.0); Eosinophils # (auto) 0.3 uL; Eosinophils % (auto) 3.8 % (0.0-7.0); Hematocrit 40.8 % (41.0-53.0); Lymphocytes # (auto) 1.4 uL; Lymphocytes % (auto) 19.4 % (10.0-50.0); Mean Corpuscular Hemoglobin 30.4 pg (28.0-32.0); Mean Corpuscular Hgb Conc. 34.4 g/dL (32.0-36.0); Mean Corpuscular Volume 88.3 fL (80.0-100.0); Monocytes # (auto) 0.8 uL; Monocytes % (auto) 11.2 % (0.0-12.0); Neutrophils # (auto) 4.6 uL; Neutrophils % (auto) 65.1 % (37.0-80.0); Platelet Count (auto) 288 10^3/uL (140-450); Red Blood Cells 4.62 10^6/uL (4.5-5.90); Red Cell Distribution Width 13.9 % (11.8-14.3)
[2019-06-19 06:59] LABS: Albumin 3.3 g/dL (3.4-5.0); Calcium 9.1 mg/dL (8.5-10.1); Potassium 4.3 mmol/L (3.5-5.1)
[2019-06-19] MEDS ORDERED: MUPIROCIN 2% OINT 15gm or 22gm TOP SCH (07:00)
[2019-06-19 07:04] LABS: BUN/Creatinine Ratio 16.3; Bilirubin, Total 0.9 mg/dL (0.2-1.0); Total Protein 7.2 g/dL (6.4-8.2)
--- NOTE | 2019-06-19 07:10 | NUR ---
END OF SHIFT REPORT GIVEN TO DAY SHIFT RN. CARE ENDORSED.
--- NOTE | 2019-06-19 07:50 | NUR ---
Opening Shift Note Assumed care of patient, awake and alert, lying on the bed. No S/S of distress/SOB or pain, room air O2 saturation 94%, no complaining of chest noted. Instructed on POC and to call for assist PRN, will continue to monitor for changes Q1hr and PRN.
[2019-06-19 08:00] VITALS: BP 132/85
--- NOTE | 2019-06-19 08:45 | NUR ---
Breakfast tray provided, patient sitting on the chair for having breakfast. Will continue to monitor and care.
--- NOTE | 2019-06-19 09:50 | NUR ---
Dr. Hyde at the bedside, seen and examined patient at this time, plan of acre discussed with patient and his also at the bedside (RT helping with translation in Mohawk). Patient made aware and agreed with the plan of care.
[2019-06-19] MEDS: PANTOPRAZOLE 40 MG TAB PO SCH (09:54)
[2019-06-19] MEDS: ASPirin 81 mg TAB PO SCH (09:54)
[2019-06-19] MEDS: LISINOPRIL 10 MG TAB PO SCH (09:56)
[2019-06-19] MEDS: ENOXAPARIN SOD 80 MG/0.8ML SYRINGE SC SCH ×2 (09:57→21:31)
[2019-06-19] MEDS: METOPROLOL SUCCINATE XL 50 MG TAB PO SCH (09:57)
[2019-06-19] MEDS: SODIUM CHLORIDE 0.9% 1,000 ML IV SCH (10:22)
--- NOTE | 2019-06-19 10:47 | NUR ---
Yulia parra, had to fax request for auth to [facility] since Dilia from [facility] called and stated they are not responsible for auth.
--- NOTE | 2019-06-19 11:31 | NUR ---
Provided the information about CABG, CABG care after, his able to read in Upper Sorbian.
[2019-06-19 12:00] VITALS: BP 129/81
--- NOTE | 2019-06-19 15:18 | NUR ---
Patient watched DVD for Angiogram in Solomon Islander and open heart surgery in Cameroonian (his helping with translation), no question at this time, patient went back to the bed stated that will taking a nap. His daughter will visit around 5 pm and they will watch the DVD again.
[2019-06-19 16:00] VITALS: BP 135/82
--- NOTE | 2019-06-19 16:00 | NUR ---
Ayala Lane at the bedside, brought DVD for open heart surgery in Sudanese, patient will wait his and daughters at the bedside and watch the DVD together.
--- NOTE | 2019-06-19 17:54 | NUR ---
His and daughter at the bedside, watching DVD for open heart surgery with patient at this time.
--- NOTE | 2019-06-19 19:15 | NUR ---
OPENING SHIFT RECEIVED REPORT FROM DAY SHIFT RN. ASSUMED CARE OF PATIENT. PATIENT SITTING IN CHAIR, FAMILY AT BED SIDE, NO SIGNS OR SYMPTOMS OF SOB, PAIN OR DISTRESS. CURRENTLY ON ROOM AIR, 02 SAT - 94%. LEFT FOREARM AND RIGHT FOREARM IV - CLEAN/DRY/INTACT. UPDATED PATIENT AND FAMILY ON PLAN OF CARE. WILL CONTINUE TO MONITOR.
[2019-06-19 20:00] VITALS: BP 147/73
[2019-06-19 20:33] LABS: Urine Bacteria NONE SEEN /hpf (None Seen); Urine Blood Negative /uL (Negative); Urine Specific Gravity 1.014 (1.001-1.035); Urine WBC <1 /hpf (0 - 3)
[2019-06-19] MEDS: ATORVASTATIN 20 MG TAB PO SCH (21:30)
[2019-06-19] MEDS: GABAPENTIN 300 MG CAP PO SCH (21:31)
[2019-06-19] MEDS ORDERED: ASCORBIC ACID 500 MG TAB PO ONE (22:00)
[2019-06-20] VITALS: BP 97/55
[2019-06-20] MEDS: HYDROcodone-ACET 5/325MG TAB PO SCH ×6 (02:00→22:00)
[2019-06-20] MEDS ORDERED: CHLORHEXIDINE 4% TOPICAL soln 118ml TOP ONE (02:00)
[2019-06-20 04:00] VITALS: BP 124/69
--- NOTE | 2019-06-20 05:00 | NUR ---
MORNING CARE PATIENT REFUSED MORNING CARE AT THIS TIME. CLEAN LINEN LEFT AT BEDSIDE.
[2019-06-20 05:34] LABS: Basophils # (auto) 0 uL; Basophils % (auto) 0.4 % (0.0-2.0); Eosinophils # (auto) 0.4 uL; Eosinophils % (auto) 5.2 % (0.0-7.0); Hematocrit 36.9 % (41.0-53.0); Hemoglobin 12.6 g/dL (13.5-17.5); Lymphocytes # (auto) 1.7 uL; Lymphocytes % (auto) 24.8 % (10.0-50.0); Mean Corpuscular Hemoglobin 29.8 pg (28.0-32.0); Mean Corpuscular Hgb Conc. 34.2 g/dL (32.0-36.0); Mean Corpuscular Volume 87.1 fL (80.0-100.0); Monocytes # (auto) 0.8 uL; Neutrophils # (auto) 3.9 uL; Neutrophils % (auto) 57.6 % (37.0-80.0); Nucleated Red Blood Cells % 0.1 %; Platelet Count (auto) 280 10^3/uL (140-450); Red Blood Cells 4.24 10^6/uL (4.5-5.90); Red Cell Distribution Width 13.7 % (11.8-14.3); White Blood Cell 6.7 10^3/uL (4.4-10.8)
[2019-06-20 05:56] LABS: Albumin 2.9 g/dL (3.4-5.0); Calcium 8.7 mg/dL (8.5-10.1); Potassium 4.6 mmol/L (3.5-5.1)
[2019-06-20] MEDS: InsuLIN REG 1unit/0.01ml Soln (100units/ml) SC SCH ×3 (05:58→17:48)
[2019-06-20] MEDS: ALPRAZolam 0.25 MG TAB PO SCH ×3 (06:00→21:24)
[2019-06-20] MEDS ORDERED: CHLORHEXIDINE 0.12% ORAL rinse 473ML MT ONE (06:00)
[2019-06-20] MEDS: ACCU-CHEK COMFORT CURVE STRIP VI SCH ×3 (06:01→17:48)
[2019-06-20 06:03] LABS: BUN/Creatinine Ratio 16.8; Bilirubin, Total 0.4 mg/dL (0.2-1.0); Total Protein 6.5 g/dL (6.4-8.2)
[2019-06-20] MEDS: SODIUM CHLORIDE 0.9% 1,000 ML IV SCH ×2 (06:04→23:25)
--- NOTE | 2019-06-20 06:35 | NUR ---
Elimination Pt voided 270ml, wiped by self. Pt asked to use a restroom. Pt passed BM and gas. Pt walked to bed without incident. Addendum: 06/21/19 at 0752 by Hawa Hinton RN disregard note, wrong date.
--- NOTE | 2019-06-20 07:15 | NUR ---
END OF SHIFT REPORT GIVEN TO DAY SHIFT RN. CARE ENDORSED.
[2019-06-20 08:00] VITALS: BP 141/85
--- NOTE | 2019-06-20 08:00 | NUR ---
Opening Shift Note Assumed care of patient, awake and alert. Patient A&Ox4. Patient on the monitor. Patient on room air saturation at 96%. IV left forearm 20G saline locked and right forearm 20G running NS at 50ml/hr, both IV's patent, clean, dry, and intact. No S/S of distress/SOB or pain. Instructed on POC and to call for assist. Bed locked and in the lowest position, side rails up x2, call light with in reach. Will continue to monitor.
--- NOTE | 2019-06-20 08:30 | NUR ---
Patient sitting up in bed eating breakfast independently. Will continue to monitor. Addendum: 06/20/19 at 1124 by Portia Monique RN Duplicate note.
--- NOTE | 2019-06-20 08:30 | NUR ---
Patient sitting up in bed eating breakfast independently. Will continue to monitor.
[2019-06-20] MEDS: PANTOPRAZOLE 40 MG TAB PO SCH (09:40)
[2019-06-20] MEDS: ASPirin 81 mg TAB PO SCH (09:41)
[2019-06-20] MEDS: LISINOPRIL 10 MG TAB PO SCH (09:41)
[2019-06-20] MEDS: ENOXAPARIN SOD 80 MG/0.8ML SYRINGE SC SCH ×2 (09:42→22:00)
[2019-06-20] MEDS: METOPROLOL SUCCINATE XL 50 MG TAB PO SCH (09:42)
--- NOTE | 2019-06-20 09:45 | NUR ---
Dr. Dunbar at bedside.
--- NOTE | 2019-06-20 10:00 | NUR ---
Medication dosages, usages, and side effects explained to patient. Patient verbalized understanding. Will continue to monitor.
--- NOTE | 2019-06-20 10:00 | NUR ---
Dr. Hyde at bedside. Medication dosages, usages, and side effects, explained to patient. Patient verbalized understanding. Will continue to monitor.
[2019-06-20 12:00] VITALS: BP 139/81
--- NOTE | 2019-06-20 12:30 | NUR ---
Patient sitting up in bed eating lunch independently. Will continue to monitor.
--- NOTE | 2019-06-20 14:00 | NUR ---
Patient sitting up in bedside chair watching TV. Patient denies any SOB or distress at this time. Will continue to monitor.
--- NOTE | 2019-06-20 14:34 | NUR ---
Nutrition Follow-up Notes Wt.: 72.5 kg as of yesterday. Pt's sitting up on bedside chair, denies any discomfort when rounded this morning. Pt states that he usually weighs around 150 lbs, denies any significant weight change few months officer captain. Pt's diabetic, takes oral DM meds, usually has good appetite, eat meals regularly, NKFA and not into any special diets officer captain. Pt's currently on Cardiac: 2 gms Na, Low Chol, Low Fat diet with adequate PO intake aeb 100% ave. consumed meals (x6) in last 2.5 days. Provide verbal and written nutrition educ. re: current therapeutic diet and she verbalized understanding. Noted pt's NPO after midnight for heart surgery. Est. Needs based on BW (72 kg): 8494-8665 kcal (23-25 kcal/kgBW), 72-79 gms pro (1.0-1.1 gms/kgBW). Will continue to monitor pertinent labs and reassess nutrient need prn Labs: Gluc 147 H, Cl 108 H, AST 93 H, ALP 141 H, Trig 166 H, HDL 32 L, Alb 2,9 L; HbA1c 7.2 H, Skin: Baudilio scale 19, low risk, skin intact per architecture analyst. GI: Pt had2x BM yesterday per architecture analyst. PES: Altered nutrition related lab values r/t current/chronic medical condition aeb hyperglycemia, hyperchloremia, elev. HbA1c, LFTs, Trig, low HDL and mod hypoalbuminemia Will continue to monitor PO intake/NPO status, skin status, pertinent labs and weight trend. F/u in 3 to 5 days. Rec.: 1.) Resume oral diet (Consistent Standard Carb: 60 gms/meal, Cardiac: 2 gms Na, Low Chol, Low Fat diet) when medically appropriate. 2.) If Albumin continues trending down, consider Prostat 1 pkt BID. 3.) If still NPO in next 48 hrs, consider alternate nutrition support if medically appropriate. 4.) Refer pt to CDE/RD for further nutrition education and weight monitoring upon discharge. 5.) Continue current plan of care.
[2019-06-20 16:00] VITALS: BP 158/79
--- NOTE | 2019-06-20 17:00 | NUR ---
Patient resting at this time. No S/S of pain/SOB or distress. Will continue to monitor.
--- NOTE | 2019-06-20 18:30 | NUR ---
End of shift note: Patient sitting up in bed side chair eating dinner independently. Patient A&Ox4. Patient on the monitor. Patient on room air saturation at 97%. IV left forearm 20G saline locked and right forearm 20G running NS at 50ml/hr, both IV's patent, clean, dry, and intact. No S/S of distress/SOB or pain. Bed locked and in the lowest position, side rails up x2, call light with in reach. Report to be given to night manager RN. Will continue to monitor.
--- NOTE | 2019-06-20 19:30 | NUR ---
Opening Shift Note/ Pre op teaching Assumed care of patient, awake and alert, dangle at bedside, talking with family. Breathing even and nonlabored, on RA, No S/S of distress/SOB or pain. Saline lock #20 on left FA, CDI site, flushed well, due to d/s, will d/s later. IV #20 on Right FA infusing NS, CDI site, due to d/s, will d/s later. Due to void. Bed in low position, call light within reach, all alarms are audible, fall and safety precaution in place. Instructed on POC and to call for assist PRN, will continue to monitor for changes Q1hr and PRN. Family at bedside at this time. Family helping with translation. Discussed with Family and Patient about the questions and concerned. Pre-op, Post-op teaching done. All questions and concerned answered. Patient stated that he is ready for the operation and smiled.
[2019-06-20 20:00] VITALS: BP 127/91
[2019-06-20] MEDS: ATORVASTATIN 20 MG TAB PO SCH (21:21)
[2019-06-20] MEDS: GABAPENTIN 300 MG CAP PO SCH (21:24)
[2019-06-20] MEDS: MUPIROCIN 2% OINT 15gm or 22gm TOP SCH (21:25)
[2019-06-20] MEDS ORDERED: ASCORBIC ACID 500 MG TAB PO ONE (22:00)
[2019-06-21] VITALS (47 sets, daily range): BP systolic 18–173; BP diastolic 8–92
--- NOTE | 2019-06-21 | NUR ---
Condition update/ NPO Pt sleeping well, no pain. V/S and condition stable. Acc check 272, Insulin given as MD order. Continue care. Addendum: 06/21/19 at 0042 by Hawa Hinton RN Reminded Pt of NPO. Water removed from bedside.
[2019-06-21] MEDS: InsuLIN REG 1unit/0.01ml Soln (100units/ml) SC SCH ×2 (00:23→05:54)
[2019-06-21] MEDS: ACCU-CHEK COMFORT CURVE STRIP VI SCH ×12 (00:23→23:00)
[2019-06-21] MEDS: HYDROcodone-ACET 5/325MG TAB PO SCH ×2 (02:00→05:51)
[2019-06-21] MEDS ORDERED: CHLORHEXIDINE 4% TOPICAL soln 118ml TOP ONE (02:00)
--- NOTE | 2019-06-21 03:30 | NUR ---
IV d/s Checked saline lock and IV on both arms. Saline lock on left FA was tender when flushed, IV d/c, catheter intact, no immediate bleeding. IV on right FA, d/s done, no tender, infusing NS at 50ml/hr.
--- NOTE | 2019-06-21 03:45 | NUR ---
Patient bathe/linen change Shaving done. Patient given complete bath with Betasep surgical. Skin integrity assessed for any changes, no new changes. Complete linens changed. Patient ambulated well, tolerated procedure well. Preparation done at about 05.15am. Pt walked to the sink and brushed his teeth by self, CHG mouth wash given and swished. Pt complied well to all nursing care. Continue care.
[2019-06-21] MEDS: ALPRAZolam 0.25 MG TAB PO SCH (05:51)
[2019-06-21 05:57] LABS: Basophils # (auto) 0 uL; Basophils % (auto) 0.5 % (0.0-2.0); Eosinophils # (auto) 0.4 uL; Eosinophils % (auto) 5.7 % (0.0-7.0); Hematocrit 39.3 % (41.0-53.0); Hemoglobin 13.3 g/dL (13.5-17.5); Lymphocytes # (auto) 1.1 uL; Lymphocytes % (auto) 17.3 % (10.0-50.0); Mean Corpuscular Hemoglobin 29.6 pg (28.0-32.0); Mean Corpuscular Hgb Conc. 33.9 g/dL (32.0-36.0); Mean Corpuscular Volume 87.6 fL (80.0-100.0); Monocytes # (auto) 0.7 uL; Monocytes % (auto) 11.1 % (0.0-12.0); Neutrophils # (auto) 4.3 uL; Neutrophils % (auto) 65.4 % (37.0-80.0); Platelet Count (auto) 310 10^3/uL (140-450); Red Blood Cells 4.49 10^6/uL (4.5-5.90); Red Cell Distribution Width 13.6 % (11.8-14.3); White Blood Cell 6.6 10^3/uL (4.4-10.8)
[2019-06-21] MEDS ORDERED: CHLORHEXIDINE 0.12% ORAL rinse 473ML MT ONE (06:00)
[2019-06-21] MEDS: MUPIROCIN 2% OINT 15gm or 22gm TOP SCH (06:01)
[2019-06-21 06:09] LABS: Potassium 4.1 mmol/L (3.5-5.1)
[2019-06-21] MEDS ORDERED: PAPAVERINE HCL 60 MG/2 ML 2ML VIAL ONE (06:09)
[2019-06-21] MEDS ORDERED: NEOMYCIN-BACITRACIN-POLYM 15GM TOP OINT TOP ONE (06:09)
[2019-06-21] MEDS ORDERED: HEPARIN 1,000 UNITS/ml 1ML VIAL ONE (06:09)
[2019-06-21] MEDS ORDERED: BACITRACIN INJ 50000 UNIT VIAL ONE ×2 (06:10→10:57)
[2019-06-21 06:17] LABS: Albumin 3.4 g/dL (3.4-5.0); BUN/Creatinine Ratio 15.8; Bilirubin, Total 0.6 mg/dL (0.2-1.0); Calcium 8.8 mg/dL (8.5-10.1); Total Protein 7.2 g/dL (6.4-8.2)
[2019-06-21] MEDS ORDERED: NITROGLYCERIN 50MG/250ML 250 ML IV ONE (06:30)
--- NOTE | 2019-06-21 06:35 | NUR ---
Elimination Pt voided 270ml, wiped by self. Pt asked to use a restroom. Pt passed BM and gas. Pt walked back to bed without incident.
[2019-06-21] MEDS ORDERED: ceFAZolin 1GM/50ML 100 ML IV ONE (06:47)
[2019-06-21] MEDS ORDERED: ceFAZolin 1GM 2 GM in D5W 5% 50 ML IV ONE (07:00)
[2019-06-21] MEDS ORDERED: VANCOMYCIN 1GM/250ML 250 ML IV ONE (07:00)
[2019-06-21] MEDS ORDERED: fentaNYL CITRATE 10 ML ONE (07:31)
[2019-06-21] MEDS ORDERED: MIDAZOLAM HCL 1MG/1ML-2 ML VIAL ONE (07:32)
[2019-06-21] MEDS ORDERED: SUCCINYLCHOLINE CHLORIDE 20 MG/ML 10ML VIAL IV ONE (07:33)
[2019-06-21] MEDS ORDERED: ALBUMIN 25% 100 ML IV ONE (07:56)
[2019-06-21] MEDS ORDERED: MANNITOL 20 % (20GM/100ML) 500 ML IV ONE (07:56)
[2019-06-21] MEDS ORDERED: PLASMA-LYTE A pH7.4 6,000 ML INJ ONE (07:56)
[2019-06-21] MEDS ORDERED: ALBUMIN 25% 400 ML IV ONE (07:56)
[2019-06-21] MEDS ORDERED: EPINEPHrine HCL 4 MG in D5W 5% 250 ML IV ONE (08:00)
[2019-06-21] MEDS ORDERED: NOREPINEPHRINE 8 MG/250ML KIT 250 ML IV ONE (08:00)
[2019-06-21] MEDS ORDERED: AMINOCAPROIC ACID 5 GM in SODIUM CHL 0.9% 250 ML IV ONE (08:00)
[2019-06-21] MEDS ORDERED: AMINOCAPROIC ACID 10 GM in SODIUM CHL 0.9% 100 ML IV ONE (08:00)
[2019-06-21] MEDS ORDERED: InsuLIN R (HUMAN) 100 UNITS in SODIUM CHL 0.9% 99 ML IV ONE (08:00)
[2019-06-21] MEDS ORDERED: HEPARIN 30000 UNITS in SODIUM CHLORIDE 0.9% 1000 ML IV ONE (08:00)
[2019-06-21] MEDS ORDERED: PHENYLEPHRINE INJ 20 MG in SODIUM CHL 0.9% 250 ML IV ONE (08:00)
[2019-06-21] MEDS ORDERED: fentaNYL Drip 2500mCg/250mlNS 250 ML IV STA (08:56)
[2019-06-21] MEDS ORDERED: ETOMIDATE (2MG/ML) 20ML VIAL IV ONE (09:10)
[2019-06-21] MEDS ORDERED: PHYTONADIONE (VIT K)10 MG/ML 1ML VIAL SUBCUT ONE (09:15)
[2019-06-21] MEDS ORDERED: ROCURONIUM 10MG/ML 10ML VIAL IV ONE (10:46)
[2019-06-21] MEDS ORDERED: PROPOFOL 100 ML IV ONE (11:21)
[2019-06-21] MEDS ORDERED: CALCIUM CHL(10%) 100MG/ML 10ML VIAL IV ONE ×2 (11:21→20:17)
[2019-06-21] MEDS ORDERED: ceFAZolin 1GM VL ONE (11:21)
[2019-06-21] MEDS ORDERED: ONDANSETRON HCL 4 MG/2 ML VIAL ONE (11:21)
[2019-06-21] MEDS ORDERED: PROTAMINE SULFATE 250 MG/25 ML VL IV ONE (11:21)
[2019-06-21] MEDS ORDERED: ePHEDrine SULFATE 50 MG/ML AMP ONE (13:00)
[2019-06-21] MEDS ORDERED: ALBUMIN 25% 200 ML IV ONE (13:19)
[2019-06-21 13:25] LABS: Basophils # (auto) 0 uL; Basophils % (auto) 0.2 % (0.0-2.0); Eosinophils # (auto) 0.3 uL; Eosinophils % (auto) 1.7 % (0.0-7.0); Hematocrit 25.8 % (41.0-53.0); Hemoglobin 8.7 g/dL (13.5-17.5); Lymphocytes # (auto) 0.9 uL; Lymphocytes % (auto) 5.2 % (10.0-50.0); Mean Corpuscular Hemoglobin 29.6 pg (28.0-32.0); Mean Corpuscular Hgb Conc. 33.7 g/dL (32.0-36.0); Mean Corpuscular Volume 87.9 fL (80.0-100.0); Monocytes # (auto) 0.2 uL; Neutrophils # (auto) 16.7 uL; Neutrophils % (auto) 91.9 % (37.0-80.0); Nucleated Red Blood Cells % 0.1 %; Platelet Count (auto) 164 10^3/uL (140-450); Red Blood Cells 2.94 10^6/uL (4.5-5.90); Red Cell Distribution Width 13.7 % (11.8-14.3); White Blood Cell 18.2 10^3/uL (4.4-10.8)
[2019-06-21 13:30] LABS: Albumin 3.8 g/dL (3.4-5.0); Potassium 3.3 mmol/L (3.5-5.1)
[2019-06-21 13:34] LABS: BUN/Creatinine Ratio 10.9; Bilirubin, Total 0.5 mg/dL (0.2-1.0); Total Protein 5.7 g/dL (6.4-8.2)
[2019-06-21 13:39] LABS: INR 1.24 (0.9-1.15); Partial Thromboplastin Time 22.8 sec (23.64-32.05)
[2019-06-21 13:41] LABS: Calcium 14.4 mg/dL (8.5-10.1)
[2019-06-21] MEDS: NOREPINEPHRINE 8 MG/250ML KIT 250 ML IV SCH (13:42)
[2019-06-21] MEDS ORDERED: NITROGLYCERIN 50MG/250ML 250 ML IV SCH (13:42)
[2019-06-21] MEDS: PHENYLEPHRINE IV 250 ML IV SCH (13:42)
[2019-06-21] MEDS ORDERED: NICARDIPINE 25MG/250ML BAG KIT 250 ML IV SCH (13:42)
[2019-06-21] MEDS ORDERED: INSULIN DRIP 100 UNIT/100ML 100 ML IV SCH (13:42)
[2019-06-21] MEDS: MILRINONE 20MG/100ML 100 ML IV SCH (13:42)
[2019-06-21] MEDS ORDERED: SODIUM CHLORIDE 0.9% 1,000 ML IV SCH (13:42)
[2019-06-21] MEDS ORDERED: ceFAZolin 1GM 2 GM in D5W 5% 100 ML IV SCH (13:45)
[2019-06-21] MEDS ORDERED: VANCOMYCIN 1GM/250ML 250 ML IV SCH ×2 (13:45→17:00)
[2019-06-21] MEDS ORDERED: SODIUM BICARBONATE 8.4% INJ 50ML SYRINGE IV PRN (13:45)
[2019-06-21] MEDS ORDERED: MAGNESIUM SULFATE 1GM/100ML 100 ML IV PRN (13:45)
[2019-06-21] MEDS ORDERED: METOCLOPRAMIDE HCL 5MG/ml INJ 2ml VIAL IV PRN (13:45)
[2019-06-21] MEDS ORDERED: ONDANSETRON HCL 4 MG/2 ML VIAL IV PRN (13:45)
[2019-06-21] MEDS ORDERED: ALBUMIN 5% 250 ML IV PRN (13:45)
[2019-06-21] MEDS ORDERED: AMIODARONE HCL 150 MG in D5W 5% 100 ML IV ONE (13:45)
[2019-06-21] MEDS ORDERED: AMIODARONE HCL 900 MG in DEXTROSE 500 ML IV SCH (13:52)
[2019-06-21] MEDS: SODIUM CHLORIDE 0.9% 500 ML IV SCH (14:06)
--- NOTE | 2019-06-21 14:06 | NUR ---
Pt. arrived from [facility] accompanied by cardiothoracic team on hemodynamic monitoring. Report received from anesthesiologist and Dr. Dunbar. Surgery: Cabg x4. Endoscopic Vein [place] to right leg. Lines: PA catheter around 46cm at the Hub of the Dual lumen Cordis to the right IJ [place] to right radial artery Pacer wires: ventricular wires with rate of 60, ma 25 and sensitivity 2.0. Patient currently has own intrinsic rate in the 90's. Chest Tube: left and mediastinal, connected to atrium h2o suction. Draining minimal bloody drainage. Philip: to gravity draining clear pale urine. ET tube: 7.5, 22 lip line Gtts: Inslin, nicardipine, levophed, diprivan, fentanyl as noted in IV spreadsheet. Hemodynamics: CO/CI:unable to obtain CI at this time due to technical difficulties HR: 100 Assisted BP: 118/44 MAP: 69 CVP: 3 PAP: 22/8 SVR: 848 SVO2: % SPO2:100 % Immediated Post- Op recovery Pt arrived to ICU hemodynamically stable except for the following issues: blood sugar low at 64 stopped insulin drip at this time. Reassessed and was 67 MD aware continued with drip off will recheck. Started patient on D5 .45NS @125ml/hr.
[2019-06-21] MEDS: NICARDIPINE 25MG/250ML BAG KIT 250 ML IV SCH ×2 (14:21→19:21)
[2019-06-21] MEDS ORDERED: PROPOFOL 10 MG/ML 20 ML IV ONE (15:00)
[2019-06-21 15:04] LABS: Basophils # (auto) 0 uL; Basophils % (auto) 0.1 % (0.0-2.0); Eosinophils # (auto) 0.1 uL; Eosinophils % (auto) 0.6 % (0.0-7.0); Hematocrit 26.5 % (41.0-53.0); Hemoglobin 8.9 g/dL (13.5-17.5); Lymphocytes # (auto) 0.8 uL; Lymphocytes % (auto) 5.1 % (10.0-50.0); Mean Corpuscular Hemoglobin 29.8 pg (28.0-32.0); Mean Corpuscular Hgb Conc. 33.8 g/dL (32.0-36.0); Mean Corpuscular Volume 88.2 fL (80.0-100.0); Monocytes # (auto) 1.2 uL; Neutrophils # (auto) 14.5 uL; Neutrophils % (auto) 87.2 % (37.0-80.0); Platelet Count (auto) 169 10^3/uL (140-450); Red Cell Distribution Width 13.8 % (11.8-14.3); White Blood Cell 16.6 10^3/uL (4.4-10.8)
--- NOTE | 2019-06-21 15:04 | NUR ---
DR Carlo QUARLES AT BEDSIDE TO ASSESS PATIENT AND DISCUSS PLAN OF CARE. NO NEW ORDERS AT THIS TIME.
[2019-06-21] MEDS: DexMEDEtomidine 400 MCG in D5W 5% 96 ML IV SCH (15:14)
[2019-06-21 15:17] LABS: INR 1.12 (0.9-1.15)
[2019-06-21 15:22] LABS: Albumin 4.7 g/dL (3.4-5.0); Calcium 11.5 mg/dL (8.5-10.1)
[2019-06-21 15:25] LABS: BUN/Creatinine Ratio 11.3; Bilirubin, Total 0.8 mg/dL (0.2-1.0); Total Protein 6.5 g/dL (6.4-8.2)
[2019-06-21 15:34] LABS: Magnesium 4.1 mg/dL (1.6-2.6)
[2019-06-21] MEDS ORDERED: POTASSIUM PHOSPHATE 22 MEQ in SODIUM CHL 0.9% 100 ML IV ONE (15:45)
[2019-06-21] MEDS: D5W/SOD CHL 0.45% 1,000 ML IV SCH ×2 (15:45→23:45)
--- NOTE | 2019-06-21 15:45 | NUR ---
BLOOD SUGAR PATIENT CONTINUES TO HAVE DECREASED BLOOD SUGARS IN THE 60'S AND NA ELEVATED. DR HERNANDEZ MADE AWARE THAT PATIENT WAS SWITCHED TO D5 .45NS @125ML/HR. WILL CONTINUE TO MONITOR.
[2019-06-21] MEDS: ceFAZolin 1GM 2 GM in D5W 5% 100 ML IV SCH (16:06)
[2019-06-21] MEDS: PROPOFOL 100 ML IV SCH ×2 (16:11→21:51)
--- NOTE | 2019-06-21 16:37 | NUR ---
DR JACKSON CALLED AND UPDATED ON PATIENT STATUS INCLUDING HEMODYNAMICS AND DRAINAGE. NO EW ORDERS AT THIS TIME.
--- NOTE | 2019-06-21 17:04 | NUR ---
RT NOTE RECEIVED PT INTUBATED AND ON VENT V13 ON STATED SETTINGS. VENT IS PLUGGED TO RED OUTLET. ALARMS ARE ON AND AUDIBLE TO NURSING. AMBU BAG AT BEDSIDE AND CONNECTED TO O2 SOURCE. 7.5 ETT IS SECURED WITH ANCHORFAST AT 22 CM TO THE ORAL RIGHT. PT HAS A GREEN BITE BLOCK IN PLACE. PT HAS A NOTED RIGHT RADIAL ART LINE AND 2 CHEST TUBES: MEDIASTINAL AND LEFT. BILATERAL BS ARE CTA. PT WAS NOT SUCTIONED AT THIS TIME. MAKENZIE ZAVALETA AT BEDSIDE. PT TEMP 99.2, etCO2 42 HEMODYNAMICS: CVP 4, PA 26/12, SVO2 61, SVR 817, CO 5.8, CI (NOT CALCULATED, RN AWARE) OUTPUTS: CHEST TUBE 52, URINE 125 Addendum: 06/21/19 at 1906 by Sneha Rincon RT Amended: Links added.
[2019-06-21] MEDS: IPRATROPIUM BROM 0.5 MG/2.5ML INH SOL NEB SCH ×3 (18:00→22:21)
[2019-06-21] MEDS: ALBUTEROL SULF 2.5 MG/0.5ML(0.5%) NEB SOLN NEB SCH ×3 (18:00→22:21)
--- NOTE | 2019-06-21 18:13 | NUR ---
RT NOTE ROUTINE VENT CHECK DONE. PT INTUBATED AND ON VENT V13 ON STATED SETTINGS. VENT IS PLUGGED TO RED OUTLET. ALARMS ARE ON AND AUDIBLE TO NURSING. AMBU BAG AT BEDSIDE AND CONNECTED TO O2 SOURCE. 7.5 ETT IS SECURED WITH ANCHORFAST AT 22 CM TO THE ORAL RIGHT. PT HAS A GREEN BITE BLOCK IN PLACE, RT REMOVED AT THIS TIME, MAKENZIE ZAVALETA NOTIFIED. PT HAS A NOTED RIGHT RADIAL ART LINE AND 2 CHEST TUBES: MEDIASTINAL AND LEFT. BILATERAL BS ARE CTA. PT WAS SUCTIONED FOR SMALL RETURN FROM ETT AND MODERATE RETURN ORALLY. HHN GIVEN INLINE WITH 2.5 MG ALBUTEROL AND 0.5 MG ATROVENT WITHOUT ADVERSE REACTION NOTED.. MAKEZNIE ZAVALETA AT BEDSIDE. PT TEMP 99.5, etCO2 43 HEMODYNAMICS: CVP 4, PA 24/11, SVO2 60, SVR 894, CO 5.1, CI 3.0 OUTPUTS: CHEST TUBE 50, URINE 60 Addendum: 06/21/19 at 1912 by Sneha Rincon RT Amended: Links added.
--- NOTE | 2019-06-21 19:02 | NUR ---
DR JACKSON CALLED AND UPDATED ON PATIENT STATUS INCLUDING HEMODYNAMICS AND DRAINAGE. NO NEW ORDERS AT THIS TIME. INFORMED INTERNAL MEDICINE NURSE PRACTITIONER NURSE TO CALL WITH ANY CHANGES.
--- NOTE | 2019-06-21 19:35 | NUR ---
RT NOTE ROUTINE VENT CHECK DONE. PT INTUBATED AND ON VENT V13 ON STATED SETTINGS. VENT IS PLUGGED TO RED OUTLET. ALARMS ARE ON AND AUDIBLE TO NURSING. AMBU BAG AT BEDSIDE AND CONNECTED TO O2 SOURCE. 7.5 ETT IS SECURED WITH ANCHORFAST AT 22 CM TO THE ORAL RIGHT. PT HAS A NOTED RIGHT RADIAL ART LINE AND 2 CHEST TUBES: MEDIASTINAL AND LEFT. MAKENZIE ZAVALTEA AND MAKENZIE OROZCO AT BEDSIDE. PT TEMP 99.6, etCO2 42 HEMODYNAMICS: CVP 4, PA 21/10, SVO2 60, SVR 934, CO 5.5, CI 3.2 OUTPUTS: CHEST TUBE 130, URINE 145 Addendum: 06/21/19 at 1945 by Sneha Rincon RT Amended: Links added.
[2019-06-21] MEDS: AMIODARONE HCL 900 MG in DEXTROSE 500 ML IV SCH (19:52)
--- NOTE | 2019-06-21 20:00 | NUR ---
OPEN ASSUMED CARE OF MALE PT S/P CABG TODAY. PT ORALLY INTUBATED. PT SEDATED ON DIPRIVAN GTT 45 MCG/KG/MIN, AND FENTANYL GTT AT 100 MCG/HR. PT WITHDRAWS TO TACTILE STIMULI OTHERWISE NON RESPONSIVE. PUPILS EQUAL AND REACTIVE. PT PULLS HAND AWAY DURING ACCU CHECK. GRIMACES DURING ORAL CARE. SR ON LOWERATOR OPERATOR. PT ON LEVOPHED GTT 4.5 MCG/MIN. R. IJ SWAN ELIZA CATH IN PLACE APPROX 46 CM AT THE HUB OF THE DUAL LUMEN CORDIS. GOOD WAVEFORMS OBSERVED. R. RADIAL MARINA IN PLACE PROVIDING BP READINGS. PT WITH EPICARDIAL V- PACER WIRES CONNECTED TO EXTERNAL GENERATOR. GENERATOR SENSING APPROPRIATELY. NGT TO R. NARE CLAMPED. PLACEMENT VERIFIED. STERNOTOMY INCISION WITH CDI AQUACEL DRESSING IN PLACE. CHEST TUBES X 2 L. PLEURAL AND MEDIASTINAL DRAINING BLOODY DRAINAGE TO ATRIUM COLLECTION UNIT SECURED TO FLOOR. NO AIR LEAK OR CREPITUS OBSERVED. MEDIASTINAL CHEST TUBE WITH SOME CLOTS. CHEST TUBES MILKED PER PROTOCOL. ATRIUM TO 20 CM SUCTION PER ORDER. CHEST TUBE DRESSINGS CDI. DAVIS TO GRAVITY DRAINING CLEAR YELLOW URINE. RHONDA WRAP IN PLACE OVER R. LEG SITE OF ENDOSCOPIC VEIN GRAFT HARVEST SITES. RHONDA WRAP CDI. LILIANA HOSE IN PLACE TO L. LEG. NO OTHER SKIN ISSUES OBSERVED. BED IN LOWEST LOCKED POSITION. SIDE RAILS UP X 2. HOB ELEVATED 30 DEGREES. NO INDICATION OF PAIN OBSERVED. PT IN FULL VIEW OF RN STATION. WILL CONTINUE TO MONITOR.
--- NOTE | 2019-06-21 20:01 | NUR ---
RT NOTE ROUTINE VENT CHECK DONE. PT INTUBATED AND ON VENT V13 ON STATED SETTINGS. VENT IS PLUGGED TO RED OUTLET. ALARMS ARE ON AND AUDIBLE TO NURSING. AMBU BAG AT BEDSIDE AND CONNECTED TO O2 SOURCE. 7.5 ETT IS SECURED WITH ANCHORFAST AT 22 CM TO THE ORAL RIGHT. PT HAS A NOTED RIGHT RADIAL ART LINE AND 2 CHEST TUBES: MEDIASTINAL AND LEFT. RN PAM AT BEDSIDE. PT TEMP 99.6, etCO2 42 HEMODYNAMICS: CVP 5, PA 22/11, SVO2 59, SVR 969, CO 5.3, CI 3.1 OUTPUTS: CHEST TUBE 90, URINE 60 Addendum: 06/21/19 at 2030 by Sneha Rincon RT Amended: Links added.
--- NOTE | 2019-06-21 20:04 | NUR ---
RT NOTE ROUTINE VENT CHECK DONE. PT INTUBATED AND ON VENT V13 ON STATED SETTINGS. VENT IS PLUGGED TO RED OUTLET. ALARMS ARE ON AND AUDIBLE TO NURSING. AMBU BAG AT BEDSIDE AND CONNECTED TO O2 SOURCE. 7.5 ETT IS SECURED WITH ANCHORFAST AT 22 CM TO THE ORAL RIGHT. PT HAS A NOTED RIGHT RADIAL ART LINE AND 2 CHEST TUBES: MEDIASTINAL AND LEFT. RN PAM AT BEDSIDE. PT TEMP 99.6, etCO2 42 HEMODYNAMICS: CVP 5, PA 22/11, SVO2 59, SVR 969, CO 5.3, CI 3.1 OUTPUTS: CHEST TUBE 90, URINE 60
[2019-06-21] MEDS ORDERED: SODIUM BICARBONATE 8.4 % INJ 50ML VIAL IV ONE (20:17)
[2019-06-21] MEDS ORDERED: PHENYLEPHRINE HCL 10 MG/ML VL IV ONE (20:17)
[2019-06-21] MEDS ORDERED: ADENOSINE 6 MG/2 ML INJ IV ONE (20:17)
[2019-06-21] MEDS ORDERED: TRANEXAMIC ACID 1,000 mg/10ml INJ VIAL IV ONE (20:17)
[2019-06-21] MEDS ORDERED: POTASSIUM CHL 2MEQ/ML 20ML IV ONE (20:17)
[2019-06-21] MEDS ORDERED: LIDOCAINE HCL 100 MG/5ML (2%) SYRG INJ IV ONE (20:17)
[2019-06-21] MEDS ORDERED: HEPARIN SODIUM (PORCINE) 5000 UNITS/ML 1ML VIAL SC ONE (20:17)
[2019-06-21] MEDS ORDERED: MAGNESIUM SULF 50% 40 MEQ/10 ML VL IV ONE (20:17)
[2019-06-21 20:20] LABS: Basophils # (auto) 0 uL; Basophils % (auto) 0.1 % (0.0-2.0); Eosinophils # (auto) 0 uL; Monocytes # (auto) 0.6 uL
[2019-06-21 20:21] LABS: Hematocrit 24.6 % (41.0-53.0); Hemoglobin 8.3 g/dL (13.5-17.5); Lymphocytes # (auto) 0.3 uL; Lymphocytes % (auto) 2.1 % (10.0-50.0); Mean Corpuscular Hemoglobin 29.9 pg (28.0-32.0); Monocytes % (auto) 4.2 % (0.0-12.0); Neutrophils # (auto) 14.4 uL; Neutrophils % (auto) 93.6 % (37.0-80.0); Platelet Count (auto) 189 10^3/uL (140-450); Red Blood Cells 2.79 10^6/uL (4.5-5.90); Red Cell Distribution Width 13.8 % (11.8-14.3); White Blood Cell 15.4 10^3/uL (4.4-10.8)
[2019-06-21 20:30] LABS: BUN/Creatinine Ratio 11.3; Calcium 10.2 mg/dL (8.5-10.1); Magnesium 3.2 mg/dL (1.6-2.6); Phosphorus 1.6 mg/dL (2.5-4.90); Potassium 3.5 mmol/L (3.5-5.1)
[2019-06-21] MEDS: VANCOMYCIN 1GM/250ML 250 ML IV SCH (20:49)
[2019-06-21] MEDS: POTASSIUM CHL 20MEQ/100ML 100 ML IV PRN (20:50)
--- NOTE | 2019-06-21 21:00 | NUR ---
DR JACKSON PAGED PAGED DR JACKSON TO UPDATE REGARDING MOST RECENT HGB RESULTS, AND LAST HOUR CHEST TUBE OUTPUT, AND CURRENT CVP READING. ORDERS RECEIVED TO TRANSFUSE 1 UNIT PRBC'S AND 2 FFP'S. TELEPHONE ORDER READ BACK AND VERIFIED.
--- NOTE | 2019-06-21 21:04 | NUR ---
RT NOTE ROUTINE VENT CHECK DONE. PT INTUBATED AND ON VENT V13 ON STATED SETTINGS. VENT IS PLUGGED TO RED OUTLET. ALARMS ARE ON AND AUDIBLE TO NURSING. AMBU BAG AT BEDSIDE AND CONNECTED TO O2 SOURCE. 7.5 ETT IS SECURED WITH ANCHORFAST AT 22 CM TO THE ORAL RIGHT. THERE IS A SMALL LACERATION ON THE BOTTOM LEFT LIP, MAKENZIE OROZCO NOTIFIED. PT WAS SUCTIONED FOR SMALL RETURN. PT HAS A NOTED RIGHT RADIAL ART LINE AND 2 CHEST TUBES: MEDIASTINAL AND LEFT. MAKENZIE OROZCO AT BEDSIDE. PT TEMP 99.2, etCO2 40 HEMODYNAMICS: CVP 5, PA 21/10, SVO2 57, SVR 1057, CO 5.0, CI 2.9 OUTPUTS: CHEST TUBE 70, URINE 85 Addendum: 06/21/19 at 2114 by Sneha Rincon RT Amended: Links added.
--- NOTE | 2019-06-21 21:35 | NUR ---
PRBC STARTED PER ORDER
[2019-06-21] MEDS: CHLORHEXIDINE 0.12% ORAL rinse 473ML MT SCH (22:00)
--- NOTE | 2019-06-21 23:13 | NUR ---
RT NOTE ROUTINE VENT CHECK DONE. PT INTUBATED AND ON VENT V13 ON STATED SETTINGS. VENT IS PLUGGED TO RED OUTLET. ALARMS ARE ON AND AUDIBLE TO NURSING. AMBU BAG AT BEDSIDE AND CONNECTED TO O2 SOURCE. 7.5 ETT IS SECURED WITH ANCHORFAST AT 22 CM TO THE ORAL RIGHT. PT HAS A NOTED RIGHT RADIAL ART LINE AND 2 CHEST TUBES: MEDIASTINAL AND LEFT. MAKENZIE OROZCO AT BEDSIDE.FIO2 TITRATED TO 30%, MAKENZIE OROZCO NOTIFIED. PT TEMP 98.7, etCO2 39 HEMODYNAMICS: CVP 5, PA 19/9, SVO2 59, SVR 1071, CO 4.6, CI 2.7 OUTPUTS: CHEST TUBE 60, URINE 85 Addendum: 06/21/19 at 2324 by Sneha Rincon RT Amended: Links added.
--- NOTE | 2019-06-21 23:15 | NUR ---
DR MARIE CALLED UNIT UPDATED MD REGARDING MOST RECENT HGB RESULTS AND BLOOD PRODUCT ORDERED FROM DR. JACKSON. NO FURTHER ORDERS RECEIVED.
[2019-06-22] VITALS (84 sets, daily range): BP systolic 19–156; BP diastolic 9–68
[2019-06-22] MEDS: NICARDIPINE 25MG/250ML BAG KIT 250 ML IV SCH ×5 (00:21→20:21)
--- NOTE | 2019-06-22 00:22 | NUR ---
RT NOTE ROUTINE VENT CHECK DONE. PT INTUBATED AND ON VENT V13 ON STATED SETTINGS. VENT IS PLUGGED TO RED OUTLET. ALARMS ARE ON AND AUDIBLE TO NURSING. AMBU BAG AT BEDSIDE AND CONNECTED TO O2 SOURCE. 7.5 ETT IS SECURED WITH ANCHORFAST AT 22 CM TO THE ORAL RIGHT. PT HAS A NOTED RIGHT RADIAL ART LINE AND 2 CHEST TUBES: MEDIASTINAL AND LEFT. RN PAM AT BEDSIDE. PT TEMP 98.5, etCO2 38 HEMODYNAMICS: CVP 5, PA 19/9, SVO2 55, SVR 1164, CO 4.8, CI 2.8 OUTPUTS: CHEST TUBE 50, URINE 29 Addendum: 06/22/19 at 0034 by Sneha Rincon RT Amended: Links added.
[2019-06-22] MEDS: ceFAZolin 1GM 2 GM in D5W 5% 100 ML IV SCH ×3 (01:00→16:24)
[2019-06-22] MEDS: ACCU-CHEK COMFORT CURVE STRIP VI SCH ×11 (01:00→20:05)
--- NOTE | 2019-06-22 01:13 | NUR ---
RT NOTE ROUTINE VENT CHECK DONE. PT INTUBATED AND ON VENT V13 ON STATED SETTINGS. VENT IS PLUGGED TO RED OUTLET. ALARMS ARE ON AND AUDIBLE TO NURSING. AMBU BAG AT BEDSIDE AND CONNECTED TO O2 SOURCE. 7.5 ETT IS SECURED WITH ANCHORFAST AT 22 CM TO THE ORAL RIGHT. PT HAS A NOTED RIGHT RADIAL ART LINE AND 2 CHEST TUBES: MEDIASTINAL AND LEFT. RN PAM AT BEDSIDE. PT TEMP 98.5, etCO2 38 HEMODYNAMICS: CVP 5, PA 21/10, SVO2 58, SVR 976, CO 5.3, CI 3.1 OUTPUTS: CHEST TUBE 40, URINE 25 Addendum: 06/22/19 at 0121 by Sneha Rincon RT Amended: Links added.
--- NOTE | 2019-06-22 02:26 | NUR ---
RT NOTE ROUTINE VENT CHECK DONE. PT INTUBATED AND ON VENT V13 ON STATED SETTINGS. VENT IS PLUGGED TO RED OUTLET. ALARMS ARE ON AND AUDIBLE TO NURSING. AMBU BAG AT BEDSIDE AND CONNECTED TO O2 SOURCE. 7.5 ETT IS SECURED WITH ANCHORFAST AT 22 CM TO THE ORAL RIGHT. PT HAS A NOTED RIGHT RADIAL ART LINE AND 2 CHEST TUBES: MEDIASTINAL AND LEFT. RN PAM AT BEDSIDE. PT TEMP 98.6, etCO2 38 HEMODYNAMICS: CVP 7, PA 23/10, SVO2 57, SVR 989, CO 5.3, CI 3.1 OUTPUTS: CHEST TUBE 10, URINE 20 Addendum: 06/22/19 at 0235 by Sneha Rincon RT Amended: Links added.
[2019-06-22] MEDS: MILRINONE 20MG/100ML 100 ML IV SCH ×2 (03:08→16:34)
[2019-06-22] MEDS: DexMEDEtomidine 400 MCG in D5W 5% 96 ML IV SCH (03:20)
[2019-06-22] MEDS: PROPOFOL 100 ML IV SCH (03:31)
[2019-06-22 03:42] LABS: Basophils # (auto) 0 uL; Eosinophils # (auto) 0 uL; Mean Corpuscular Volume 87.7 fL (80.0-100.0)
[2019-06-22 03:45] LABS: Basophils % (auto) 0.1 % (0.0-2.0); Hematocrit 23.3 % (41.0-53.0); Hemoglobin 7.9 g/dL (13.5-17.5); Lymphocytes # (auto) 0.4 uL; Lymphocytes % (auto) 2.4 % (10.0-50.0); Mean Corpuscular Hemoglobin 29.8 pg (28.0-32.0); Monocytes # (auto) 1.2 uL; Monocytes % (auto) 7.3 % (0.0-12.0); Neutrophils # (auto) 14.4 uL; Neutrophils % (auto) 90.2 % (37.0-80.0); Platelet Count (auto) 155 10^3/uL (140-450); Red Blood Cells 2.66 10^6/uL (4.5-5.90); Red Cell Distribution Width 13.4 % (11.8-14.3); White Blood Cell 15.9 10^3/uL (4.4-10.8)
[2019-06-22 03:59] LABS: Magnesium 2.6 mg/dL (1.6-2.6); Potassium 3.5 mmol/L (3.5-5.1)
[2019-06-22 04:01] LABS: BUN/Creatinine Ratio 12.4; Phosphorus 2.6 mg/dL (2.5-4.90)
[2019-06-22] MEDS: POTASSIUM CHL 20MEQ/100ML 100 ML IV PRN ×2 (04:11→05:44)
--- NOTE | 2019-06-22 04:20 | NUR ---
RT NOTE ROUTINE VENT CHECK DONE. PT INTUBATED AND ON VENT V13 ON STATED SETTINGS. VENT IS PLUGGED TO RED OUTLET. ALARMS ARE ON AND AUDIBLE TO NURSING. AMBU BAG AT BEDSIDE AND CONNECTED TO O2 SOURCE. 7.5 ETT IS SECURED WITH ANCHORFAST AT 22 CM TO THE ORAL RIGHT. PT HAS A NOTED RIGHT RADIAL ART LINE AND 2 CHEST TUBES: MEDIASTINAL AND LEFT.PT WAS SUCTIONED FOR SCANT RETURN, HME, T-PIECE AND INLINE SUCTION CHANGED WITHOUT INCIDENT. MAKENZIE ROOZCO AT BEDSIDE. PT TEMP 98.0, etCO2 36 HEMODYNAMICS: CVP 7, PA 21/11, SVO2 55, SVR 992, CO 4.8, CI 2.8 OUTPUTS: CHEST TUBE 20, URINE 60 Addendum: 06/22/19 at 0431 by Sneha Rincon RT Amended: Links added.
--- NOTE | 2019-06-22 05:30 | NUR ---
MD CALL DR JACKSON CALLED UNIT. UPDATED MD REGARDING AM LABS AND CURRENT GTT'S. ORDERS RECEIVED.
[2019-06-22] MEDS: MORPHINE SULFATE 4 MG/ML SYR/VIAL IV PRN ×2 (05:41→20:19)
--- NOTE | 2019-06-22 05:46 | NUR ---
PAIN PT BEING WEANED OFF OF SEDATION. PT AWAKENS. PT GRIMACING. ASKED PT IF HAVING PAIN IN OCCITAN. PT NODS HEAD YES. MEDICATED PT WITH MORPHINE SIVP PER ODER. WILL CONTINUE TO MONITOR.
[2019-06-22] MEDS: ALBUTEROL SULF 2.5 MG/0.5ML(0.5%) NEB SOLN NEB SCH ×5 (06:37→22:51)
[2019-06-22] MEDS: IPRATROPIUM BROM 0.5 MG/2.5ML INH SOL NEB SCH ×5 (06:37→22:51)
--- NOTE | 2019-06-22 07:00 | NUR ---
OPENING NOTE REPORT RECEIVED FROM AUTO TRANSMISSION MECHANIC NURSE. PATIENT RESTING IN BED AT THIS TIME INTUBATED AND LIGHTLY SEDATED. RESPIRATIONS EVEN AND UNLABORED. DAVIS TO GRAVITY DRAINING CLEAR WITH MINIMAL SEDIMENT LIGHT LETICIA URINE. STERNAL INCISION CLEAN DRY AND INTACT. CHEST TUBE SITES CLEAN DRY AND INTACT WITH NO NOTED CREPITUS OR AIR LEAK , CONNECTED TO ATRIUM WITH WATER SEAL, DRAINING BLOODY DRAINAGE. V PACER WIRES CONNECTED TO PACER, PATIENT HAS OWN INTRINSIC RATE AT THIS TIME IN THE 90'S. ENDOSCOPIC SITES TO RIGHT LEG CLEAN DRY AND INTACT COVERED WITH NON ADHERENT GAUZE AND WRAPPED WITH RHONDA WRAP. COMPRESSION STOCKING TO LEFT LEG. ALL PULSES STRONG AND PALPABLE. IV DRIPS NOTED IN IV SPREADSHEET. PATIENT HAS NO COMPLAINTS OF PAIN AT THIS TIME. BED IN LOW POSITION. CALL LIGHT IN REACH. WILL CONTINUE TO MONITOR.
--- NOTE | 2019-06-22 07:02 | NUR ---
NEURO PT AWAKE ALERT AND CALM. NODS HEAD NO WHEN ASKED IF IN PAIN.
--- NOTE | 2019-06-22 07:30 | NUR ---
SPOKE TO DR JACKSON VIA TELEPHONE AND UPDATED ON PATIENT STATUS. PER MD TURN OFF ELOY SHARMA PLACE PATIENT ON SIMV ORDERED AND WHEN AWAKE START CPAP TRIAL. ALL ORDERS NOTED IN CHART.
--- NOTE | 2019-06-22 07:34 | NUR ---
CHANGED TO SIMV MODE WITH PS 8, PER DR. JACKSON'S T.O TAKEN BY RN. ZAVALETA.
[2019-06-22] MEDS: D5W/SOD CHL 0.45% 1,000 ML IV SCH (07:45)
--- NOTE | 2019-06-22 08:14 | NUR ---
DR JACKSON AT BEDSIDE TO ASSESS PATIENT AND DISCUSS PLAN OF CARE. PER MD CONTINUE FENTANYL DRIP AT 25-30MCG/HR FOR PAIN UNTIL PATIENT IS ABLE TO TOLERATE PO PAIN MEDICATIONS. ADMINISTER ALBUMIN AND LASIX ORDERED.
[2019-06-22] MEDS ORDERED: DEXTROSE (50%) 50ML SYRG IV PRN ×2 (08:30→13:45)
[2019-06-22] MEDS ORDERED: FUROSEMIDE 20 MG/2 ML VIAL IV ONE (08:30)
[2019-06-22] MEDS ORDERED: BISACODYL 10 MG RECT SUPP PR PRN (08:30)
[2019-06-22] MEDS ORDERED: POTASSIUM CHL 20MEQ/100ML 100 ML IV PRN (08:30)
[2019-06-22] MEDS ORDERED: SENNA 8.6 MG TAB PO PRN (08:30)
[2019-06-22] MEDS ORDERED: hydrALAZINE HCL 20 MG/ML VL IV PRN (08:30)
[2019-06-22] MEDS ORDERED: ALBUMIN 25% 100 ML IV ONE (08:30)
[2019-06-22] MEDS: PANTOPRAZOLE 40 MG/10 ML VIAL INJ IV SCH (09:26)
--- NOTE | 2019-06-22 09:31 | NUR ---
SPOKE TO DR Carlo QUARLES ON PATIENT CPAP TRIAL ABG, PER MD CALL DR THORNTON WHO IS COVERING THIS WEEKEND FOR PULMONARY. PAGED DR THORNTON AND LEFT MESSAGE. AWAITING CALL BACK.
[2019-06-22 09:33] LABS: Hemoglobin 9.5 g/dL (13.5-17.5); Mean Corpuscular Hemoglobin 29.9 pg (28.0-32.0); Mean Corpuscular Hgb Conc. 33.9 g/dL (32.0-36.0); Mean Corpuscular Volume 88.1 fL (80.0-100.0); Platelet Count (auto) 162 10^3/uL (140-450); Red Blood Cells 3.18 10^6/uL (4.5-5.90); White Blood Cell 20.3 10^3/uL (4.4-10.8)
[2019-06-22] MEDS: VANCOMYCIN 1GM/250ML 250 ML IV SCH ×2 (09:45→20:19)
[2019-06-22] MEDS: CHLORHEXIDINE 0.12% ORAL rinse 473ML MT SCH ×2 (09:46→22:00)
[2019-06-22 09:53] LABS: Albumin 4.1 g/dL (3.4-5.0); Calcium 9.1 mg/dL (8.5-10.1); Magnesium 2.6 mg/dL (1.6-2.6); Potassium 4.4 mmol/L (3.5-5.1)
[2019-06-22 09:56] LABS: Basophils % (manual) 0 (0.0-2.0); Blast Cells 0; Eosinophils % (manual) 0 (0-7); Metamyelocytes % 0; Myelocytes % 0; Promyelocytes % 0; Reactive Lymphocytes 0
[2019-06-22 09:58] LABS: BUN/Creatinine Ratio 14.5; Bilirubin, Total 0.9 mg/dL (0.2-1.0); Phosphorus 3.5 mg/dL (2.5-4.90); Total Protein 6.6 g/dL (6.4-8.2)
[2019-06-22] MEDS ORDERED: InsuLIN REG 1unit/0.01ml Soln (100units/ml) SC SCH ×2 (10:00→12:00)
[2019-06-22] MEDS: METOPROLOL TARTRATE 25 MG TAB PO SCH ×2 (10:00→22:40)
[2019-06-22] MEDS: DOCUSATE SOD 100 MG CAP PO SCH ×2 (10:00→22:39)
[2019-06-22] MEDS: ASPirin 81 mg TAB PO SCH (10:00)
[2019-06-22] MEDS: POTASSIUM CHL 20 Meq TABLET PO SCH ×2 (10:00→22:00)
[2019-06-22] MEDS ORDERED: PANTOPRAZOLE 40 MG/10 ML VIAL INJ IV SCH (10:00)
[2019-06-22] MEDS: ASCORBIC ACID 500 MG TAB PO SCH ×2 (10:00→22:41)
[2019-06-22] MEDS ORDERED: ACCU-CHEK COMFORT CURVE STRIP VI SCH ×2 (10:00→12:00)
--- NOTE | 2019-06-22 10:03 | NUR ---
SPOKE TO DR THORNTON AND REVIEWED ABG RESULTS FROM CPAP. PER MD EXTUBATE PATIENT AND PLACE ON COOL MIST MASK. IF NEEDED BIPAP AND DRAW ABG 1 HOUR AFTER PLACEMENT ON BIPAP IF NEEDED. RACEMIC EPINEPHRINE X2 DOSES IF NEEDED. ALL ORDERS NOTED IN CHART.
--- NOTE | 2019-06-22 10:10 | NUR ---
EXTUBATION PATIENT EXTUBATED PER DR THORNTON. PATIENT PLACED ON 30% FIO2 SATURATIONS 99%. NO NOTED STRIDOR. PATIENT TOLERATED WELL. WILL CONTINUE TO MONITOR.
[2019-06-22] MEDS: NITROGLYCERIN 0.4MG/HR TOPICAL PATCH TD SCH (11:00)
[2019-06-22 11:47] LABS: Band Neutrophils % (manual) 10; Lymphocytes % (manual) 1 (10.0-50.0); Monocytes % (manual) 4 (0-12)
--- NOTE | 2019-06-22 12:05 | NUR ---
PATIENT PLACED ON 2 LITERS NASAL CANULA SATURATIONS 97-98%. WILL CONTINUE TO MONITOR.
--- NOTE | 2019-06-22 12:08 | NUR ---
DR DANG AT BEDSIDE TO ASSESS PATIENT AND DISCUSS PLAN OF CARE. NO NEW ORDERS AT THIS TIME.
--- NOTE | 2019-06-22 12:12 | NUR ---
INCENTIVE SPIROMETER PATIENT EDUCATED ON INCENTIVE SPIROMETER. PATIENT RETURNED DEMONSTRATION AND WAS ABLE TO OBTAIN 500ML. PATIENT ENCOURAGED TO CONTINUE AT EAST 10 TIMES IN AN HOUR. PATIENT AND VERBALIZED UNDERSTANDING.
--- NOTE | 2019-06-22 12:15 | NUR ---
SWALLOW EVALUATION PATIENT GIVEN ICE CHIPS AND TOLERATED WELL. PATIENT GIVEN WATER WELL AND TOLERATED WELL WITH NO ISSUES. WILL ADVANCE TO CLEAR LIQUIDS.
[2019-06-22] MEDS: HYDROcodone-ACET 5/325MG TAB PO PRN ×2 (13:35→19:38)
[2019-06-22] MEDS: PHENYLEPHRINE IV 250 ML IV SCH (13:42)
[2019-06-22] MEDS: NOREPINEPHRINE 8 MG/250ML KIT 250 ML IV SCH (13:42)
[2019-06-22] MEDS: SODIUM CHLORIDE 0.9% 500 ML IV SCH (13:43)
--- NOTE | 2019-06-22 13:55 | NUR ---
DISCONTINUED ARTERIAL LINE PER MD ORDERS TO RIGHT RADIAL ARTERY. APPLIED PRESSURE FOR 10 MINUTES.NO NOTED BLEEDING, APPLIED STERILE GAUZE AND PRESSURE TAPE. PATIENT TOLERATED WELL. WILL CONTINUE TO MONITOR.
--- NOTE | 2019-06-22 14:20 | NUR ---
DISCONTINUED HERBERTH KAY PER MD ORDER. REVIEWED CXR PRIOR TO REMOVAL. PATIENT TOLERATED WELL. VITAL SIGNS STABLE. WILL CONTINUE TO MONITOR.
[2019-06-22] MEDS: ACETYLCYSTEINE 10 %(100MG/ML) SOL 4ML NEB SCH ×2 (14:37→22:51)
--- NOTE | 2019-06-22 15:00 | NUR ---
DR THORNTON AT BEDSIDE TO ASSESS PATIENT AND DISCUSS PLAN OF CARE WITH PATIENT AND . NO NEW ORDERS AT THIS TIME.
--- NOTE | 2019-06-22 16:10 | NUR ---
PATIENT UP TO CHAIR WITH 2 NURSES. PATIENT TOLERATED WELL, VITAL SIGNS STABLE. WILL CONTINUE TO MONITOR.
[2019-06-22] MEDS: InsuLIN REG 1unit/0.01ml Soln (100units/ml) SC SCH ×2 (16:24→20:05)
[2019-06-22] MEDS: FUROSEMIDE 40 MG TAB PO SCH (17:48)
[2019-06-22] MEDS: fentaNYL CITRATE 100 MCG/2 ML VL IV PRN ×2 (17:48→22:43)
--- NOTE | 2019-06-22 18:10 | NUR ---
DR JACKSON UPDATED ON PATIENT STATUS. PER MD CXR AND LABS IN AM.
--- NOTE | 2019-06-22 19:35 | NUR ---
PAIN PT STATES HAVING PAIN 6/10 TO STERNAL INCISION SITE. PT MEDICATED WITH NORCO PO PER ORDER. SEE EMAR.
--- NOTE | 2019-06-22 19:45 | NUR ---
OPEN ASSUMED CARE OF MALE PT S/P CABG ON 06/21/2019. PT A&O X 4. MOSTLY DJIBOUTIAN SPEAKING. PT SITTING IN RECLINER AT SIDE OF BED VISITING WITH FAMILY MEMBERS. PT SR 90'S TO SINUS TACH 1TEENS ON EXHAUST EMISSIONS INSPECTOR. PT WITH EPICARDIAL V PACER WIRES IN PLACE. EXTERNAL GENERATOR PLACED ON STANDBY. AQUACEL DRESSING IN PLACE OVER STERNOTOMY INCISION. CDI. CHEST TUBES X 2. L PLEURAL AND MEDIASTINAL, DRAINING SEROUS SANGUINEOUS DRAINAGE INTO ATRIUM COLLECTION UNIT SECURED TO FLOOR. NO AIR LEAKS OR CREPITUS PRESENT. CHEST TUBE DRESSINGS CDI. R. IJ CORDIS IN PLACE B&P, R. F.A. 20 G IV S/L B&P. DAVIS TO GRAVITY DRAINING YELLOW URINE WITH SOME SEDIMENT. RHONDA WRAP IN PLACE OVER ENDOSCOPIC INCISIONS. CDI. LILIANA HOSE IN PLACE TO L. LEG. CALL GAMEZ IN REACH. PT EDUCATED TO USE CALL GAMEZ PRIOR TO GETTING UP OUT OF CHAIR. PT VERBALIZES UNDERSTANDING.
[2019-06-22] MEDS: AMIODARONE HCL 900 MG in DEXTROSE 500 ML IV SCH (19:52)
--- NOTE | 2019-06-22 20:19 | NUR ---
RESP/PAIN PT ON BIPAP BREATHING TX PER ORDER. STATES STILL HAVING 5/10 PAIN TO STERNAL INCISION SITE. PT MEDICATED WITH MORPHINE SIVP PER ORDER.
--- NOTE | 2019-06-22 21:30 | NUR ---
PT'S CALLED UNIT PT'S CALLED UNIT FOR UPDATE ON PT CONDITION. AFTER PASSWORD FOR PHONE GIVEN. UPDATE PROVIDED. ALL QUESTIONS AND CONCERNS ADDRESSED.
--- NOTE | 2019-06-22 22:00 | NUR ---
ACTIVITY PT AMBULATED WITH USE OF ROLLING WALKER ON PORTABLE O2 WITH PORTABLE MONITOR. PT ABLE TO AMBULATE ONCE AROUND RN STATION WITH STANDBY ASSIST. PT ASSISTED TO RECLINER AT SIDE OF BED. CALL GAMEZ IN REACH.
[2019-06-22] MEDS: ATORVASTATIN 20 MG TAB PO SCH (22:40)
--- NOTE | 2019-06-22 22:43 | NUR ---
PAIN PT C/O PAIN 5/10 TO STERNAL INCISION SITE AFTER AMBULATING. PT MEDICATED WITH FENTANYL SIVP PER ORDER. SEE EMAR.
[2019-06-23] VITALS (43 sets, daily range): BP systolic 96–132; BP diastolic 53–72
--- NOTE | 2019-06-23 | NUR ---
I.S. PT BEST EFFORT 750 ML. ENCOURAGED PT TO USE I.S. Q 1 HR WHILE AWAKE.
[2019-06-23] MEDS: ACCU-CHEK COMFORT CURVE STRIP VI SCH ×7 (00:04→23:23)
[2019-06-23] MEDS: ceFAZolin 1GM 2 GM in D5W 5% 100 ML IV SCH ×3 (00:05→16:15)
[2019-06-23] MEDS: InsuLIN REG 1unit/0.01ml Soln (100units/ml) SC SCH ×7 (00:05→23:23)
[2019-06-23] MEDS: MORPHINE SULFATE 4 MG/ML SYR/VIAL IV PRN (00:36)
--- NOTE | 2019-06-23 00:40 | NUR ---
ACTIVITY PT ASSISTED BACK TO BED PER REQUEST. CALL GAMEZ IN REACH.
[2019-06-23] MEDS: NICARDIPINE 25MG/250ML BAG KIT 250 ML IV SCH ×5 (01:21→21:21)
[2019-06-23] MEDS: HYDROcodone-ACET 5/325MG TAB PO PRN (01:30)
--- NOTE | 2019-06-23 02:14 | NUR ---
ACTIVITY PT ASSISTED OOB TO TOILET WITH USE OF ROLLING WALKER AND PORTABLE O2. PT EDUCATED TO PULL CALL CORD WHEN FINISHED. PT VERBALIZES UNDERSTANDING.
[2019-06-23] MEDS: fentaNYL CITRATE 100 MCG/2 ML VL IV PRN ×2 (02:39→05:31)
[2019-06-23 04:43] LABS: Eosinophils # (auto) 0 uL; Lymphocytes # (auto) 1.2 uL; Mean Corpuscular Hgb Conc. 33.4 g/dL (32.0-36.0); Red Blood Cells 2.69 10^6/uL (4.5-5.90); Red Cell Distribution Width 14.2 % (11.8-14.3)
[2019-06-23 04:45] LABS: Basophils # (auto) 0 uL; Basophils % (auto) 0.2 % (0.0-2.0); Mean Corpuscular Hemoglobin 29.8 pg (28.0-32.0); Monocytes # (auto) 1.6 uL; Monocytes % (auto) 9.1 % (0.0-12.0); Neutrophils # (auto) 14.3 uL; Neutrophils % (auto) 83.7 % (37.0-80.0); Platelet Count (auto) 150 10^3/uL (140-450); White Blood Cell 17.1 10^3/uL (4.4-10.8)
[2019-06-23 04:59] LABS: Albumin 3.8 g/dL (3.4-5.0); Calcium 8.5 mg/dL (8.5-10.1); Magnesium 2.5 mg/dL (1.6-2.6); Potassium 4.2 mmol/L (3.5-5.1)
--- NOTE | 2019-06-23 05:00 | NUR ---
INCISION CARE PROVIDED ORDERED FOR CHEST TUBE INSERTION SITES.
[2019-06-23 05:01] LABS: BUN/Creatinine Ratio 18.5; Phosphorus 3.8 mg/dL (2.5-4.90)
[2019-06-23 05:04] LABS: Bilirubin, Total 0.9 mg/dL (0.2-1.0); Total Protein 6.5 g/dL (6.4-8.2)
--- NOTE | 2019-06-23 05:15 | NUR ---
ACTIVITY PT AMBULATED AROUND NURSES UNIT X 1 LAP. PT ASSISTED TO RECLINER AT SIDE OF BED. CALL GAMEZ IN REACH.
[2019-06-23] MEDS: MILRINONE 20MG/100ML 100 ML IV SCH ×2 (05:30→19:26)
--- NOTE | 2019-06-23 05:30 | NUR ---
PAIN PT C/O PAIN 7/10 TO STERNAL INCISION SITE. MEDICATED WITH FENTANYL SIVP PER ORDER.
[2019-06-23] MEDS: IPRATROPIUM BROM 0.5 MG/2.5ML INH SOL NEB SCH ×5 (05:38→22:10)
[2019-06-23] MEDS: ACETYLCYSTEINE 10 %(100MG/ML) SOL 4ML NEB SCH ×3 (05:38→22:10)
[2019-06-23] MEDS: ALBUTEROL SULF 2.5 MG/0.5ML(0.5%) NEB SOLN NEB SCH ×5 (05:38→22:10)
[2019-06-23] MEDS ORDERED: fentaNYL CITRATE 100 MCG/2 ML VL IV PRN ×2 (05:45→15:45)
--- NOTE | 2019-06-23 05:45 | NUR ---
DR JACKSON CALLED UNIT DR JACKSON CALLED UNIT. ORDERS RECEIVED.
[2019-06-23] MEDS: FUROSEMIDE 40 MG TAB PO SCH ×2 (05:51→19:12)
[2019-06-23] MEDS: SOD CHL 0.45% 1,000 ML IV SCH (06:17)
--- NOTE | 2019-06-23 08:00 | NUR ---
OPENING NOTE Received patient in room 108 patient sitting in chair alert and oriented X4 Welsh speaker, speech appropriate/clear, moves all extremities without difficulty. Sinus tachycardia in the 100's on bedside monitor, pulses palpable on upper/lower extremities with no edema observed. Patient has epicardial V pacer wires in place and external generator placed on standby. Aquacel dressing in place over sternotomy incision clean, dry and intact, chest tubes X2 to the pleural and mediastinal draining serous sanguineous: NO leaks or crepitus noted. Dressings clean, dry and intact to chest tubes. Abdomen soft, non tender, non distended with bowel sounds present in all quadrants and last bowel movement being on per NOC nurse. Philip catheter draining to gravity clear yellow urine. Right IJ cordis in place and right forearm 20g infusing .45NS at 50ml/hr.Terrance wrap in place to the right leg over endoscopic incisions and LILIANA hose to the left leg. Incentive spirometry able to reach 700ml. Call light within reach and bed at lowest position. Patient instructed to use call light for assistance and PRN. Will continue to monitor patient closely.
--- NOTE | 2019-06-23 08:15 | NUR ---
MD Dr. Hyde at bedside updated on patient condition with no new orders received. MD spoke to patient regarding plan of care and questions and concerns answered by MD.
--- NOTE | 2019-06-23 08:45 | NUR ---
FAMILY Patients at bedside updated on patient condition.
--- NOTE | 2019-06-23 09:00 | NUR ---
NUTRITION Patient was able to eat independently his breakfast, ate 80% and tolerated well.
--- NOTE | 2019-06-23 09:20 | NUR ---
ACTIVITY Patient out of chair with walker, connected to portable phototypesetting equipment monitor/oxygen was able to ambulate 2 laps in ICU. Patient tolerated well with no signs/symptoms of respiratory distress. Patient once again sitting in chair. Will continue to monitor patient closely.
[2019-06-23] MEDS: NITROGLYCERIN 0.4MG/HR TOPICAL PATCH TD SCH (09:45)
[2019-06-23] MEDS: VANCOMYCIN 1GM/250ML 250 ML IV SCH (09:45)
[2019-06-23] MEDS: ASPirin 81 mg TAB PO SCH (09:46)
[2019-06-23] MEDS: DOCUSATE SOD 100 MG CAP PO SCH ×2 (09:46→21:45)
[2019-06-23] MEDS: METOPROLOL TARTRATE 25 MG TAB PO SCH ×2 (09:46→21:44)
[2019-06-23] MEDS: ASCORBIC ACID 500 MG TAB PO SCH ×2 (09:46→21:44)
[2019-06-23] MEDS: HYDROcodone-ACET 10/325MG TAB PO PRN ×3 (09:50→23:20)
[2019-06-23] MEDS: CHLORHEXIDINE 0.12% ORAL rinse 473ML MT SCH ×2 (09:57→21:45)
[2019-06-23] MEDS: PANTOPRAZOLE 40 MG/10 ML VIAL INJ IV SCH (09:57)
[2019-06-23] MEDS: POTASSIUM CHL 20 Meq TABLET PO SCH ×2 (09:57→21:44)
--- NOTE | 2019-06-23 11:35 | NUR ---
ELIMINATION Patient requested to be assisted to bedside commode, patient ambulated to bedside commode and was unable to have bowel movement but passed gas.
--- NOTE | 2019-06-23 12:00 | NUR ---
ACTIVITY Patient was able to ambulate 4 laps around unit with no signs/symptoms of respiratory distress while connected to portable cardiac care unit nurse/oxygen. Patient returned to chair.
--- NOTE | 2019-06-23 12:15 | NUR ---
Nutrition Follow-up Notes Wt.: 69.5 kg Pt's successfully extubated with MD at bedside. pt with no distress noted currently on CCHO 45 gm cardiac soft diet with adequate PO of 100% x 3 per RN doc Est. Needs based on BW (72 kg): 3913-9403 kcal (23-25 kcal/kgBW), 72-79 gms pro (1.0-1.1 gms/kgBW). Will continue to monitor pertinent labs and reassess nutrient need prn Labs: BUN 31 H, CREAT 1.68 H, GLU 256 H, Skin: Baudilio scale 16, mod risk, incision at site of sx dry and intact per executive personal assistant. GI: Pt had 2x BM / per executive personal assistant. PES: Altered nutrition related lab values r/t current/chronic medical condition aeb hyperglycemia, hyperchloremia, elev. HbA1c, LFTs, Trig, low HDL and mod hypoalbuminemia Will continue to monitor PO intake, skin status, pertinent labs and weight trend. F/u in 3 to 5 days. Rec.: 1.) If Albumin continues trending down, consider Prostat 1 pkt BID. 2) Refer pt to CDE/RD for further nutrition education and weight monitoring upon discharge. 3.) Continue current plan of care.
[2019-06-23] MEDS: PHENYLEPHRINE IV 250 ML IV SCH (13:42)
[2019-06-23] MEDS: NOREPINEPHRINE 8 MG/250ML KIT 250 ML IV SCH (13:42)
[2019-06-23] MEDS: PROPOFOL 100 ML IV SCH (13:42)
--- NOTE | 2019-06-23 13:45 | NUR ---
PEPITO HOSE Pepito hose removed from left leg.
--- NOTE | 2019-06-23 15:30 | NUR ---
MD Received phone call from Dr. Dunbar updated on patient condition with new orders, this RN to input into system. Will carry out orders per MD.
--- NOTE | 2019-06-23 16:28 | NUR ---
MD Dr. Hyde paged through exchange left message, awaiting for MD to call back regarding patient having discomfort from lemus and stating it donahue.
--- NOTE | 2019-06-23 16:30 | NUR ---
MD Dr. Hyde call back with new orders, this RN to input into system. Will carry out orders.
--- NOTE | 2019-06-23 19:30 | NUR ---
Initial Assessment Patient received sitting in chair at bedside conversing with family. Patient is awake, alert, and oriented x4, has equal strength in all extremities, and follows commands. RR even and unlabored with equal rise and fall on 2L o2 via N/C. RIJ dual lumen cordis running 1/2 NS per MD order-Dressing is CDI. Aquacel AG dressing intact to mid-sternal incision and is CDI. Left pleural and mediastinal chest tubes connected to [facility] collection chamber at [id number] suction draining serosanguineous fluid; no clots, crepitus, or air leaks noted. Ventricular epicardial wire isolated. F/C intact and draining to gravity. RHONDA wrap intact to right leg. Non-skid socks intact to bilateral feet. Neurovascular status intact with palpable distal pulses x4 extremities, skin warm to touch, and capillary refill brisk. Patient educated about how to use the call light and encouraged to call when needing any assistance and patient verbalized understanding.
[2019-06-23] MEDS: AMIODARONE HCL 900 MG in DEXTROSE 500 ML IV SCH (19:52)
--- NOTE | 2019-06-23 19:56 | NUR ---
Pain management Patient C/O pain / and is requesting "pain shot". No drowsiness or respiratory depression noted. All vitals stable. Fentanyl administered per MD order. Patient tolerated well with no adverse reaction noted.
--- NOTE | 2019-06-23 20:00 | NUR ---
RHONDA wraps Right RHONDA wrap taken off per protocol and LILIANA hose applied to bilateral legs. neurovascular status remains intact with palpable distal pulses x4 extremities, skin warm to touch, and capillary refill brisk.
--- NOTE | 2019-06-23 20:30 | NUR ---
Pacemaker check Ventricular epicardial wire connected to [facility] collection chamber with backup rate of 60, Ma of 10, and sensitivity of 0.8. Upon pacemaker check there was 100% capture with proper timing. Backup rate turned back down to 60bpm and remains on standby.
--- NOTE | 2019-06-23 21:00 | NUR ---
Activity Patient ambulated in room using FWW. Returned to cardiac recliner chair without incident. Denies any chest pain, SOB, or dizziness. Patient tolerated activity well.
[2019-06-23] MEDS: PHENAZOPYRIDINE HCL 100 MG TAB PO SCH (21:44)
[2019-06-23] MEDS: ATORVASTATIN 20 MG TAB PO SCH (21:45)
[2019-06-23] MEDS: cefTRIAXone 1GM/50ML D5W 50 ML IV SCH (21:45)
--- NOTE | 2019-06-23 23:40 | NUR ---
Pain management Patient C/O pain 03/24 and is requesting [place]. No drowsiness or respiratory depression noted. All vitals stable. [place] administered per MD order. Patient tolerated well with no adverse reaction noted
[2019-06-24] VITALS (30 sets, daily range): BP systolic 92–123; BP diastolic 51–72
[2019-06-24] MEDS: NICARDIPINE 25MG/250ML BAG KIT 250 ML IV SCH ×5 (01:57→22:21)
--- NOTE | 2019-06-24 03:00 | NUR ---
Ongoing Assessment Patient resting in cardiac chair. Requested to sleep in cardiac chair stating it is more comfortable than bed. RR even and unlabored with equal rise and fall. No S/S of distress or pain noted. Appears to be sleeping but awakens easily to verbal stimuli. All vitals stable. Chest tubes remain to suction with no s/s of clots, crepitus, or air leak noted. No bleeding noted. Neurovascular status remains intact with palpable distal pulses x4 extremities, skin warm to touch, and capillary refill brisk. All fall/safety precautions intact. Continue close monitoring.
[2019-06-24] MEDS: InsuLIN REG 1unit/0.01ml Soln (100units/ml) SC SCH ×5 (03:33→20:32)
[2019-06-24] MEDS: ACCU-CHEK COMFORT CURVE STRIP VI SCH ×5 (03:33→20:28)
[2019-06-24 04:24] LABS: Basophils # (auto) 0 uL; Basophils % (auto) 0.2 % (0.0-2.0); Eosinophils # (auto) 0.2 uL; Eosinophils % (auto) 1.1 % (0.0-7.0); Hematocrit 24.3 % (41.0-53.0); Hemoglobin 8.2 g/dL (13.5-17.5); Lymphocytes # (auto) 1.8 uL; Monocytes # (auto) 1.3 uL; Red Blood Cells 2.73 10^6/uL (4.5-5.90); Red Cell Distribution Width 13.8 % (11.8-14.3)
[2019-06-24 04:27] LABS: Lymphocytes % (auto) 10.1 % (10.0-50.0); Mean Corpuscular Hgb Conc. 33.7 g/dL (32.0-36.0); Monocytes % (auto) 7.3 % (0.0-12.0); Neutrophils # (auto) 14.6 uL; Neutrophils % (auto) 81.3 % (37.0-80.0); Nucleated Red Blood Cells % 0.1 %; Platelet Count (auto) 183 10^3/uL (140-450)
[2019-06-24 04:34] LABS: Albumin 3.6 g/dL (3.4-5.0); Calcium 8.6 mg/dL (8.5-10.1); Magnesium 2.6 mg/dL (1.6-2.6); Potassium 3.8 mmol/L (3.5-5.1)
[2019-06-24 04:37] LABS: Bilirubin, Total 0.6 mg/dL (0.2-1.0); Total Protein 6.9 g/dL (6.4-8.2)
--- NOTE | 2019-06-24 05:00 | NUR ---
Incisional care Aquacel AG dressing taken off per protocol. Mid-sternal incision cleansed with CHG Swabstick and left open to air. Chest tube insertion sites x2 cleansed with CHG Swabsticks and re-dressed with petroleum soaked gauze, sterile gauze, and medipore tape. Endoscopic harvest sites cleansed with CHG Swabsticks and LILIANA hose re-applied. All incision sites are well approximated with no s/s of infection or dehiscence noted. Patient tolerated well.
--- NOTE | 2019-06-24 05:30 | NUR ---
Activity Patient ambulated five laps around the nurses station utilizing FWW and connected to continuous cardiac and sp02 monitoring. Patient had strong, even, and steady gait. Tolerated well and denied any chest pain, SOB, or dizziness. Assisted back into cardiac chair at bedside without incident.
[2019-06-24] MEDS: FUROSEMIDE 40 MG TAB PO SCH ×2 (06:15→18:22)
[2019-06-24] MEDS: HYDROcodone-ACET 10/325MG TAB PO PRN ×2 (06:21→17:22)
--- NOTE | 2019-06-24 06:21 | NUR ---
Pain management Patient C/O pain 01/22 and is requesting [place]. No drowsiness or respiratory depression noted. All vitals stable. [place] administered per MD order. Patient tolerated well with no adverse reaction noted
[2019-06-24] MEDS: ACETYLCYSTEINE 10 %(100MG/ML) SOL 4ML NEB SCH ×3 (06:36→22:00)
[2019-06-24] MEDS: IPRATROPIUM BROM 0.5 MG/2.5ML INH SOL NEB SCH ×5 (06:36→22:30)
[2019-06-24] MEDS: ALBUTEROL SULF 2.5 MG/0.5ML(0.5%) NEB SOLN NEB SCH ×5 (06:36→22:30)
--- NOTE | 2019-06-24 07:00 | NUR ---
Report given No changes or incidents to report, all vitals stable. Care endorsed to day shift RN.
[2019-06-24] MEDS: SOD CHL 0.45% 1,000 ML IV SCH ×2 (08:00→22:00)
--- NOTE | 2019-06-24 08:00 | NUR ---
OPENING NOTE Received patient in room 108 patient sitting in chair alert and oriented X4 [place] speaker, speech appropriate/clear, moves all extremities without difficulty. Sinus tachycardia in the 90's on bedside monitor, pulses palpable on upper/lower extremities with no edema observed. Patient has epicardial V pacer wires in place and external generator placed on standby. Sternotomy incision open to air clean, dry and intact, chest tubes X2 to the pleural and mediastinal draining serous sanguineous: NO leaks or crepitus noted. Dressings clean, dry and intact to chest tubes. Abdomen soft, non tender, non distended with bowel sounds present in all quadrants and last bowel movement being on 06/21/2019 per NOC nurse but passing gas. Philip catheter draining to gravity clear orange urine. Right IJ cordis in place and right forearm 20g infusing .45NS at 50ml/hr.LILIANA hose to bilateral legs. Incentive spirometry able to reach 1000ml. Call light within reach and bed at lowest position. Patient instructed to use call light for assistance and PRN. Will continue to monitor patient closely.
[2019-06-24] MEDS: MILRINONE 20MG/100ML 100 ML IV SCH ×2 (08:52→22:18)
--- NOTE | 2019-06-24 09:15 | NUR ---
ACTIVITY Patient was able to ambulate 10 laps with no sign/symptoms of respiratory distress. Patient tolerated well. Will continue to monitor patient closely.
--- NOTE | 2019-06-24 09:45 | NUR ---
FAMILY Patients and daughter at bedside updated on patient condition.
[2019-06-24] MEDS: CHLORHEXIDINE 0.12% ORAL rinse 473ML MT SCH ×2 (10:00→22:15)
[2019-06-24] MEDS: NITROGLYCERIN 0.4MG/HR TOPICAL PATCH TD SCH (11:02)
[2019-06-24] MEDS: PHENAZOPYRIDINE HCL 100 MG TAB PO SCH ×2 (11:02→22:07)
[2019-06-24] MEDS: PANTOPRAZOLE 40 MG/10 ML VIAL INJ IV SCH (11:02)
[2019-06-24] MEDS: METOPROLOL TARTRATE 25 MG TAB PO SCH ×3 (11:03→23:14)
[2019-06-24] MEDS: POTASSIUM CHL 20 Meq TABLET PO SCH ×2 (11:03→22:11)
[2019-06-24] MEDS: ASCORBIC ACID 500 MG TAB PO SCH ×2 (11:03→22:06)
[2019-06-24] MEDS: ASPirin 81 mg TAB PO SCH (11:03)
[2019-06-24] MEDS: DOCUSATE SOD 100 MG CAP PO SCH ×2 (11:04→22:08)
--- NOTE | 2019-06-24 13:30 | NUR ---
MD Dr. Hyde at bedside updated on patient condition with no new orders. MD spoke to patient regarding plan of care and questions/concerns answered by MD.
--- NOTE | 2019-06-24 13:40 | NUR ---
NUTRITION Patient ate 50% of lunch independently, tolerated well.
[2019-06-24] MEDS: PHENYLEPHRINE IV 250 ML IV SCH (13:42)
[2019-06-24] MEDS: PROPOFOL 100 ML IV SCH (13:42)
[2019-06-24] MEDS: NOREPINEPHRINE 8 MG/250ML KIT 250 ML IV SCH (13:42)
--- NOTE | 2019-06-24 14:00 | NUR ---
ELIMINATION Patient requested to use bedside commode was unable to have a bowel movement but was able to pass gas.
--- NOTE | 2019-06-24 14:00 | NUR ---
ACTIVITY Patient was able to ambulate 10 laps with out incident, patient tolerated well.
--- NOTE | 2019-06-24 15:40 | NUR ---
PEPITO HOSE [place] link taken off.
--- NOTE | 2019-06-24 19:30 | NUR ---
OPEN NOTES Patient is awake and alert. sitting on the chair because he does not feel comfortable in bed. VS stable. has some pain but tolerable on Nasal cannula at 2L/min, saturating 95% and above. 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 Still has no BM since 06/21 Philip catheter in placed draining to orangy output. complains of some pain- Pyridium started yesterday Full assessment done - refer interventions will continue to monitor
--- NOTE | 2019-06-24 19:35 | NUR ---
AMBULATION Patient ambulated x 12 laps around the unit. tolerated well
[2019-06-24] MEDS: AMIODARONE HCL 900 MG in DEXTROSE 500 ML IV SCH (19:52)
--- NOTE | 2019-06-24 20:00 | NUR ---
IV removal IV at right FA DC'd with clean sterile technique, catheter fully intact. Pressure dressing applied to site. Patient tolerated well.
--- NOTE | 2019-06-24 21:00 | NUR ---
INCENTIVE SPIROMETRY Patient was able to do up to 1000mls Encouraged to do when awake
--- NOTE | 2019-06-24 22:00 | NUR ---
INCISIONAL CARE Sternotomy incision and harvest sites - cleaned with CHG swabs
[2019-06-24] MEDS: cefTRIAXone 1GM/50ML D5W 50 ML IV SCH (22:05)
--- NOTE | 2019-06-24 22:05 | NUR ---
LILIANA CENTENO RE-APPLIED
[2019-06-24] MEDS: ATORVASTATIN 20 MG TAB PO SCH (22:07)
[2019-06-25] VITALS (26 sets, daily range): BP systolic 86–121; BP diastolic 44–72
[2019-06-25] MEDS: ACCU-CHEK COMFORT CURVE STRIP VI SCH ×6 (00:09→20:00)
[2019-06-25] MEDS: InsuLIN REG 1unit/0.01ml Soln (100units/ml) SC SCH ×6 (00:14→20:00)
--- NOTE | 2019-06-25 00:15 | NUR ---
PAIN Patient's pain score 8/10 Standing up now to stretch his back will give [place] massage done
[2019-06-25] MEDS: HYDROcodone-ACET 10/325MG TAB PO PRN ×3 (00:19→14:01)
--- NOTE | 2019-06-25 01:45 | NUR ---
ROUNDS Patient seen resting now,still in the recliner VS stable,will continue to monitor
[2019-06-25] MEDS: NICARDIPINE 25MG/250ML BAG KIT 250 ML IV SCH ×4 (03:21→17:55)
[2019-06-25 04:24] LABS: Lymphocytes # (auto) 1.8 uL; Red Cell Distribution Width 13.7 % (11.8-14.3)
[2019-06-25 04:30] LABS: Basophils # (auto) 0 uL; Basophils % (auto) 0.4 % (0.0-2.0); Eosinophils # (auto) 0.7 uL; Hematocrit 23.7 % (41.0-53.0); Hemoglobin 8.1 g/dL (13.5-17.5); Lymphocytes % (auto) 15.8 % (10.0-50.0); Mean Corpuscular Hemoglobin 30.3 pg (28.0-32.0); Mean Corpuscular Hgb Conc. 34.1 g/dL (32.0-36.0); Mean Corpuscular Volume 88.9 fL (80.0-100.0); Monocytes # (auto) 0.9 uL; Monocytes % (auto) 8.2 % (0.0-12.0); Neutrophils # (auto) 7.8 uL; Neutrophils % (auto) 69.6 % (37.0-80.0); Platelet Count (auto) 228 10^3/uL (140-450); Red Blood Cells 2.67 10^6/uL (4.5-5.90); White Blood Cell 11.3 10^3/uL (4.4-10.8)
[2019-06-25 04:53] LABS: Albumin 3.4 g/dL (3.4-5.0); Calcium 8.5 mg/dL (8.5-10.1); Magnesium 2.7 mg/dL (1.6-2.6); Potassium 3.9 mmol/L (3.5-5.1)
[2019-06-25 04:57] LABS: BUN/Creatinine Ratio 31.1; Bilirubin, Total 0.6 mg/dL (0.2-1.0); Total Protein 6.8 g/dL (6.4-8.2)
--- NOTE | 2019-06-25 05:00 | NUR ---
AMBULATION Patient ambulated x 14 laps around the unit. tolerated well
--- NOTE | 2019-06-25 05:40 | NUR ---
LILIANA HOSE REMOVED
--- NOTE | 2019-06-25 05:46 | NUR ---
PAIN Patient complained of pain in the back 03/24 encouraged deep breathing exercises will medicate
--- NOTE | 2019-06-25 05:47 | NUR ---
INCENTIVE SPIROMETRY IS done up to 1000mls x 10times Encouraged to do it often when awake
--- NOTE | 2019-06-25 06:00 | NUR ---
HYGIENE/CHEST TUBE DRESSING CHANGED Patient cleaned with CHG wipes Bed linen changed but still wants to sit on the recliner until he gets the breathing treatment Chest tube dressing changed. Cleaned with CHG swabs. site covered with petroleum gauze then sterile gauze and Medipore tape. V pacer wires isolated. procedure tolerated well
[2019-06-25] MEDS: FUROSEMIDE 40 MG TAB PO SCH ×2 (06:12→17:54)
[2019-06-25] MEDS: SOD CHL 0.45% 1,000 ML IV SCH (06:15)
--- NOTE | 2019-06-25 06:20 | NUR ---
IV insertion IV access obtained, via clean sterile technique by inserting 22 gauge catheter at right hand after 2 attempt(s). IV secured properly. No trauma to site. Patient tolerated well.
[2019-06-25] MEDS: IPRATROPIUM BROM 0.5 MG/2.5ML INH SOL NEB SCH ×5 (06:44→22:15)
[2019-06-25] MEDS: ALBUTEROL SULF 2.5 MG/0.5ML(0.5%) NEB SOLN NEB SCH ×5 (06:44→22:15)
[2019-06-25] MEDS: ACETYLCYSTEINE 10 %(100MG/ML) SOL 4ML NEB SCH ×3 (06:45→22:15)
--- NOTE | 2019-06-25 07:00 | NUR ---
Report received from MAKENZIE Cornell. Addendum: 06/25/19 at 0748 by Elizabet Valdes RN Received report from MAKENZIE Finn.
--- NOTE | 2019-06-25 07:18 | NUR ---
REPORT Care endorsed to MAKENZIE Mcneal
--- NOTE | 2019-06-25 09:20 | NUR ---
Patient able to perform IS up to 500 to 1000.
--- NOTE | 2019-06-25 10:20 | NUR ---
Patient ambulated 12 laps around the unit.
--- NOTE | 2019-06-25 10:45 | NUR ---
Discontinued cortis and lemus. Tolerated well. COntinue to monitor urine output.
[2019-06-25] MEDS: CHLORHEXIDINE 0.12% ORAL rinse 473ML MT SCH ×2 (11:15→22:29)
[2019-06-25] MEDS: PANTOPRAZOLE 40 MG/10 ML VIAL INJ IV SCH (11:15)
[2019-06-25] MEDS: ASPirin 81 mg TAB PO SCH (11:15)
[2019-06-25] MEDS: METOPROLOL TARTRATE 25 MG TAB PO SCH ×2 (11:16→22:32)
[2019-06-25] MEDS: DOCUSATE SOD 100 MG CAP PO SCH ×2 (11:16→22:29)
[2019-06-25] MEDS: POTASSIUM CHL 20 Meq TABLET PO SCH ×2 (11:16→22:30)
[2019-06-25] MEDS: PHENAZOPYRIDINE HCL 100 MG TAB PO SCH ×2 (11:16→22:32)
[2019-06-25] MEDS: ASCORBIC ACID 500 MG TAB PO SCH ×2 (11:16→22:33)
[2019-06-25] MEDS: NITROGLYCERIN 0.4MG/HR TOPICAL PATCH TD SCH (11:17)
[2019-06-25] MEDS: MILRINONE 20MG/100ML 100 ML IV SCH (11:18)
--- NOTE | 2019-06-25 11:45 | NUR ---
Dr. Dunbar at bedside: Discontinued chest tube and pacer wires. Okay for lactulose for constipation- continue with colace. Patient education on skin care and activity- to ambulate at home as much as tolerated.
--- NOTE | 2019-06-25 11:55 | NUR ---
Dr. Hyde at bedside- Discontinue to home (possibly tomorrow) if patient continues to improve. D/C IVF patient tolerating food and liquids.
[2019-06-25] MEDS ORDERED: LACTULOSE 20Gm/30ML SOLN PO PRN (12:15)
--- NOTE | 2019-06-25 12:15 | NUR ---
Dr. Noonan at bedside- patient assessed.
[2019-06-25] MEDS ORDERED: InsuLIN REG 1unit/0.01ml Soln (100units/ml) ONE (12:23)
[2019-06-25] MEDS ORDERED: LACTULOSE 20Gm/30ML SOLN ONE (12:23)
--- NOTE | 2019-06-25 12:55 | NUR ---
Placed patient on toilet - passing gas, no bowel movement.
[2019-06-25] MEDS: PHENYLEPHRINE IV 250 ML IV SCH (13:42)
[2019-06-25] MEDS: PROPOFOL 100 ML IV SCH (13:42)
[2019-06-25] MEDS: NOREPINEPHRINE 8 MG/250ML KIT 250 ML IV SCH (13:42)
--- NOTE | 2019-06-25 14:40 | NUR ---
Respiratory note: UNABLE TO PLACE PT ON BIPAP WITH MEDNEB DUE TO PATIENT EATING LUNCH AND RISK OF ASPIRATION. MEDNEB TX GIVEN BY MOUTH-PIECE. RN MADE AWARE.
--- NOTE | 2019-06-25 15:21 | NUR ---
Yulia parra corporate representative at the bedside.
--- NOTE | 2019-06-25 16:18 | NUR ---
Discharge planning per SS consult,patient has orders for a rollator walker and home health. Referral sent to [facility] for walker, Donita Giraldo has accepted, obtained auth from Julia at [facility]-[id number].
--- NOTE | 2019-06-25 16:30 | NUR ---
Patient ambulated 15 laps around the ICU unit tolerated well.
[2019-06-25] MEDS: AMIODARONE HCL 900 MG in DEXTROSE 500 ML IV SCH (17:55)
--- NOTE | 2019-06-25 19:04 | NUR ---
REPORT AND ENDORSED CARE TO MAKENZIE OLIVEIRA.
--- NOTE | 2019-06-25 20:00 | NUR ---
REPORT RECEIVED AND ASSUMED CARE; PT. DID NOT RECEIVE A DINNER TRAY SO PROVIDED APPLESAUCE AND SUGAR-FREE JELLO; ACCUCHECK= 123; VITAL SIGNS STABLE ART THIS TIME; PT. SITTING IN CHAIR WITH DAUGHTER AT BEDSIDE; MIODLINE INCISION LOOKS GOOD, SLIGHTLY RED ON INCISION ITSELF, WELL APPROXIMATED, AND NO DRAINAGE NOTED; PT. HAD CHEST TUBE, PACER WIRES, AND CENTRAL LINE REMOVED TODAY; RT. HAND (22g) INFILTRATED-WILL PLACE NEW PIV WHEN ABLE; PT. DENIES PAIN AT THIS TIME; WILL CONT. TO MONITOR.
--- NOTE | 2019-06-25 21:45 | NUR ---
PLACED NEW PIV IN THE LEFT AC (22G).
[2019-06-25] MEDS: cefTRIAXone 1GM/50ML D5W 50 ML IV SCH (22:27)
[2019-06-25] MEDS: ATORVASTATIN 20 MG TAB PO SCH (22:30)
--- NOTE | 2019-06-25 22:54 | NUR ---
REPORT GIVEN TO MAKENZIE MARTINEZ; PT. TO TRANSFER TO RM#[id number].
--- NOTE | 2019-06-25 23:20 | NUR ---
pt. tranfer from icu, assumed care, pt. awake, alert and oriented, no c/o pain, incision on mid abdomen open to air, with zollvest in place, relative at bedside, not in distress.
--- NOTE | 2019-06-25 23:24 | NUR ---
PATIENT TRANSFERRED TO RM# [id number].
[2019-06-26] MEDS: ACCU-CHEK COMFORT CURVE STRIP VI SCH ×6 (00:09→20:00)
[2019-06-26] MEDS: HYDROcodone-ACET 10/325MG TAB PO PRN ×3 (04:06→18:52)
[2019-06-26] MEDS: InsuLIN REG 1unit/0.01ml Soln (100units/ml) SC SCH ×6 (04:15→21:27)
[2019-06-26 04:30] VITALS: BP 107/68
[2019-06-26 05:02] LABS: Basophils # (auto) 0.1 uL; Basophils % (auto) 0.5 % (0.0-2.0); Eosinophils # (auto) 0.7 uL; Eosinophils % (auto) 6.5 % (0.0-7.0); Hematocrit 27.2 % (41.0-53.0); Lymphocytes # (auto) 1.5 uL; Lymphocytes % (auto) 13.6 % (10.0-50.0); Mean Corpuscular Hemoglobin 29.7 pg (28.0-32.0); Mean Corpuscular Hgb Conc. 33.1 g/dL (32.0-36.0); Mean Corpuscular Volume 89.8 fL (80.0-100.0); Monocytes % (auto) 8.8 % (0.0-12.0); Neutrophils % (auto) 70.6 % (37.0-80.0); Platelet Count (auto) 312 10^3/uL (140-450); Red Blood Cells 3.03 10^6/uL (4.5-5.90); Red Cell Distribution Width 13.6 % (11.8-14.3); White Blood Cell 11.3 10^3/uL (4.4-10.8)
[2019-06-26 05:20] LABS: Albumin 3.6 g/dL (3.4-5.0); Potassium 4.6 mmol/L (3.5-5.1)
[2019-06-26 05:24] LABS: BUN/Creatinine Ratio 27.9; Bilirubin, Total 0.7 mg/dL (0.2-1.0); Total Protein 7.1 g/dL (6.4-8.2)
[2019-06-26] MEDS: FUROSEMIDE 40 MG TAB PO SCH ×2 (05:37→17:40)
[2019-06-26] MEDS: ACETYLCYSTEINE 10 %(100MG/ML) SOL 4ML NEB SCH ×3 (06:05→22:39)
[2019-06-26] MEDS: ALBUTEROL SULF 2.5 MG/0.5ML(0.5%) NEB SOLN NEB SCH ×5 (06:06→22:39)
[2019-06-26] MEDS: IPRATROPIUM BROM 0.5 MG/2.5ML INH SOL NEB SCH ×5 (06:06→22:39)
--- NOTE | 2019-06-26 07:17 | NUR ---
Opening Shift Note Report received and rounding completed. Patient observed sitting up in bedside chair without S/S of distress. Patient introduced to this RN and POC discussed. Patient requested this RN get him up to ambulate when having time. Notified patient I will do this. Call maldonado within reach and all belongs within reach. Patient verbalized understanding to call if needing assistance.
[2019-06-26 08:30] VITALS: BP 124/69
[2019-06-26] MEDS: PANTOPRAZOLE 40 MG/10 ML VIAL INJ IV SCH (09:41)
[2019-06-26] MEDS: ASPirin 81 mg TAB PO SCH (09:43)
[2019-06-26] MEDS: ASCORBIC ACID 500 MG TAB PO SCH ×2 (09:43→22:21)
[2019-06-26] MEDS: METOPROLOL TARTRATE 25 MG TAB PO SCH ×2 (09:43→22:21)
[2019-06-26] MEDS: NITROGLYCERIN 0.4MG/HR TOPICAL PATCH TD SCH (09:43)
[2019-06-26] MEDS: POTASSIUM CHL 20 Meq TABLET PO SCH ×2 (09:43→22:20)
[2019-06-26] MEDS: DOCUSATE SOD 100 MG CAP PO SCH ×2 (09:44→22:20)
[2019-06-26] MEDS: PHENAZOPYRIDINE HCL 100 MG TAB PO SCH ×2 (09:44→22:21)
[2019-06-26] MEDS: CHLORHEXIDINE 0.12% ORAL rinse 473ML MT SCH ×2 (10:55→22:20)
--- NOTE | 2019-06-26 11:00 | NUR ---
Respiratory note: MEDNEB TX GIVEN WITH EZ-PAP. PT TOLERATED TX WELL. EZ-PAP SET TO 5CMH2O AND 8 LPM.
[2019-06-26 12:30] VITALS: BP 95/56
--- NOTE | 2019-06-26 15:01 | NUR ---
MEDNEB TX GIVEN WITH EZ-PAP. PT TOLERATED TX WELL. EZ-PAP SET TO 5 CMH2O AND 8 LPM.
--- NOTE | 2019-06-26 15:05 | NUR ---
Nutrition Follow-up Notes Wt.: 66.7 kg today. Pt's on oxygen via nasal cannula, denies any discomfort during rounds this morning. Pt's currently on CCHO 60 gms, Cardiac: 2 gms Na diet with fair PO intake aeb 70% ave. consumed meals (x6) in last 2.5 days. Encouraged to increase food intake through small frequent meals as tolerated. Est. Needs based on BW (72 kg): 0486-8583 kcal (23-25 kcal/kgBW), 72-79 gms pro (1.0-1.1 gms/kgBW). Will continue to monitor pertinent labs and reassess nutrient need prn Labs: Gluc 220 H, BUN 29 H, AST 48 H, ALT 108 H, ALP 332 H, Skin: Baudilio scale 18, mod risk, pt's medial chest incision dry and intact per fur dresser. GI: Pt had 1 BM 06/21/19 per fur dresser. PES: Altered nutrition related lab values r/t current/chronic medical condition aeb hyperglycemia, hyperchloremia, elev. HbA1c, LFTs, Trig, low HDL and mod hypoalbuminemia Will continue to monitor PO intake, skin status, pertinent labs and weight trend. F/u in 3 to 5 days. Rec.: 1.) Consider close supervision and feeding assistance prn during meals. 2.) If pt's PO intake remains inadequate (<75%), consider Glucerna Shakes 1 carton BID. 3.) Refer pt to CDE/RD for further nutrition education and weight monitoring upon discharge. 4.) Continue current plan of care.
[2019-06-26 16:53] VITALS: BP 113/67
--- NOTE | 2019-06-26 19:11 | NUR ---
Opening Shift Note Received report from day shift nurseDarlene. Assumed care of patient. Patient is awake, alert, and orientated x 4. No S/S of distress/SOB or pain with 2L of oxygen given via nasal cannula. Bed is in lowest position with side rails up x 2. Bed brakes are locked and call light is with in reach. HOB is 30 degrees. Instructed on POC and to call for assist PRN, will continue to monitor for changes Q1hr and PRN.
[2019-06-26 21:42] VITALS: BP 104/72
[2019-06-26] MEDS: cefTRIAXone 1GM/50ML D5W 50 ML IV SCH (22:19)
[2019-06-26] MEDS: ATORVASTATIN 20 MG TAB PO SCH (22:20)
--- NOTE | 2019-06-26 22:39 | NUR ---
Respiratory note: AT BEDSIDE FOR MED NEB TX. PT TOLERATING TX WELL VIA EZPAP. PT AWARE I CAN BE PAGED AT ANY TIME IF HE HAS ANY CONCERN ABOUT HIS BREATHING. WILL CONTINUE TO MONITOR NEEDED.
[2019-06-27] VITALS (7 sets, daily range): BP systolic 111–133; BP diastolic 8–72
[2019-06-27] MEDS: InsuLIN REG 1unit/0.01ml Soln (100units/ml) SC SCH ×6 (01:24→20:53)
[2019-06-27] MEDS: HYDROcodone-ACET 10/325MG TAB PO PRN ×3 (03:39→22:40)
[2019-06-27] MEDS: ACCU-CHEK COMFORT CURVE STRIP VI SCH ×6 (04:00→20:26)
[2019-06-27 05:16] LABS: Eosinophils # (auto) 0.7 uL; Hemoglobin 8.4 g/dL (13.5-17.5); Mean Corpuscular Hemoglobin 29.7 pg (28.0-32.0); Mean Corpuscular Volume 88.7 fL (80.0-100.0); Red Blood Cells 2.82 10^6/uL (4.5-5.90); Red Cell Distribution Width 13.6 % (11.8-14.3); White Blood Cell 11.8 10^3/uL (4.4-10.8)
[2019-06-27 05:18] LABS: Basophils # (auto) 0.1 uL; Basophils % (auto) 0.5 % (0.0-2.0); Eosinophils % (auto) 5.6 % (0.0-7.0); Lymphocytes # (auto) 1.8 uL; Lymphocytes % (auto) 15.5 % (10.0-50.0); Mean Corpuscular Hgb Conc. 33.4 g/dL (32.0-36.0); Monocytes # (auto) 1.2 uL; Monocytes % (auto) 10.6 % (0.0-12.0); Neutrophils % (auto) 67.8 % (37.0-80.0); Nucleated Red Blood Cells % 0.1 %; Platelet Count (auto) 364 10^3/uL (140-450)
[2019-06-27 05:23] LABS: Albumin 3.2 g/dL (3.4-5.0); Calcium 8.7 mg/dL (8.5-10.1)
[2019-06-27 05:27] LABS: BUN/Creatinine Ratio 26.6; Bilirubin, Total 0.6 mg/dL (0.2-1.0); Total Protein 6.5 g/dL (6.4-8.2)
[2019-06-27] MEDS: FUROSEMIDE 40 MG TAB PO SCH ×2 (05:37→17:54)
[2019-06-27] MEDS: IPRATROPIUM BROM 0.5 MG/2.5ML INH SOL NEB SCH ×5 (05:59→22:06)
[2019-06-27] MEDS: ALBUTEROL SULF 2.5 MG/0.5ML(0.5%) NEB SOLN NEB SCH ×5 (05:59→22:06)
[2019-06-27] MEDS: ACETYLCYSTEINE 10 %(100MG/ML) SOL 4ML NEB SCH ×4 (06:00→22:06)
--- NOTE | 2019-06-27 07:07 | NUR ---
OPENING SHIFT NOTE: Assumed care of patient from night supervisor nurse. Patient is alert and oriented x4, no signs of distress noted. patient is awake in bed, is at bedside. patient and were updated on the plan of care and they verbalize understanding. Bed in lowest position, side rails upx2 and call light is in reach. Will continue to monitor.
--- NOTE | 2019-06-27 07:27 | NUR ---
closing notes endorsed care to day shift nurse, Bibiana Kern
--- NOTE | 2019-06-27 09:28 | NUR ---
RT NOTE: PT TAKING TX VIA EZ-PAP AND TOLERATING WELL. NO SIGNS OF DISTRESS NOTED. WILL CONTINUE TO MONITOR.
[2019-06-27] MEDS ORDERED: LEVOFLOXACIN 500MG 100 ML IV ONE (10:00)
[2019-06-27] MEDS: LEVOFLOXACIN 500MG 100 ML IV SCH (10:00)
[2019-06-27] MEDS: POTASSIUM CHL 20 Meq TABLET PO SCH ×2 (10:20→22:15)
[2019-06-27] MEDS: DOCUSATE SOD 100 MG CAP PO SCH ×2 (10:20→22:15)
[2019-06-27] MEDS: PHENAZOPYRIDINE HCL 100 MG TAB PO SCH ×2 (10:20→22:17)
[2019-06-27] MEDS: METOPROLOL TARTRATE 25 MG TAB PO SCH ×2 (10:20→22:17)
[2019-06-27] MEDS: NITROGLYCERIN 0.4MG/HR TOPICAL PATCH TD SCH (10:20)
[2019-06-27] MEDS: ASPirin 81 mg TAB PO SCH (10:21)
[2019-06-27] MEDS: PANTOPRAZOLE 40 MG/10 ML VIAL INJ IV SCH (10:21)
[2019-06-27 11:48] LABS: Hemoglobin 8.4 g/dL (13.5-17.5)
[2019-06-27 11:50] LABS: Hematocrit 24.6 % (41.0-53.0); Mean Corpuscular Hemoglobin 30.3 pg (28.0-32.0); Mean Corpuscular Hgb Conc. 34.3 g/dL (32.0-36.0); Mean Corpuscular Volume 88.2 fL (80.0-100.0); Platelet Count (auto) 361 10^3/uL (140-450); Red Blood Cells 2.78 10^6/uL (4.5-5.90); Red Cell Distribution Width 13.5 % (11.8-14.3); White Blood Cell 11.5 10^3/uL (4.4-10.8)
[2019-06-27 11:52] LABS: Basophils % (manual) 0 (0.0-2.0); Blast Cells 0; Metamyelocytes % 0; Myelocytes % 0; Promyelocytes % 0; Reactive Lymphocytes 0
[2019-06-27 12:11] LABS: Calcium 8.6 mg/dL (8.5-10.1)
[2019-06-27 12:15] LABS: BUN/Creatinine Ratio 23.8
[2019-06-27 12:16] LABS: Band Neutrophils % (manual) 2; Eosinophils % (manual) 3 (0-7); Lymphocytes % (manual) 18 (10.0-50.0); Monocytes % (manual) 9 (0-12)
--- NOTE | 2019-06-27 13:41 | NUR ---
PATIENT AMBULATING Patient ambulating the ríos using walker accompanied by his , patient tolerating well, so signs of distress noted.
--- NOTE | 2019-06-27 15:31 | NUR ---
IRON Veliz at bedside for Cardiology follow up. Per Dr Veliz, patient to remain on Zoll Life Vest. Plan of care discussed with patient and patient's at bedside, verbalized understanding.
[2019-06-27] MEDS: CHLORHEXIDINE 0.12% ORAL rinse 473ML MT SCH ×2 (16:10→22:14)
--- NOTE | 2019-06-27 19:07 | NUR ---
CLOSING NOTE Care endorsed to car shifter RN Jose Rodriguez
--- NOTE | 2019-06-27 19:19 | NUR ---
Opening Shift Note Received report from day shift nurse, Bibiana Kern Assumed care of patient. Patient is awake, alert, and orientated x 4. No S/S of distress/SOB or pain with 2L of oxygen given via nasal cannula. is at bedside Bed is in lowest position with side rails up x 2. Bed brakes are locked and call light is with in reach. HOB is 30 degrees. Instructed on POC and to call for assist PRN, will continue to monitor for changes Q1hr and PRN.
[2019-06-27] MEDS: cefTRIAXone 1GM/50ML D5W 50 ML IV SCH (22:14)
[2019-06-27] MEDS: ATORVASTATIN 20 MG TAB PO SCH (22:16)
[2019-06-28] MEDS: InsuLIN REG 1unit/0.01ml Soln (100units/ml) SC SCH ×4 (00:45→11:51)
[2019-06-28] MEDS: ACCU-CHEK COMFORT CURVE STRIP VI SCH ×4 (04:00→11:51)
[2019-06-28 05:00] VITALS: BP 107/63
[2019-06-28] MEDS: HYDROcodone-ACET 10/325MG TAB PO PRN ×2 (05:56→11:59)
[2019-06-28] MEDS: FUROSEMIDE 40 MG TAB PO SCH (05:57)
[2019-06-28 06:28] LABS: Potassium 4.2 mmol/L (3.5-5.1)
[2019-06-28 06:37] LABS: Albumin 3.1 g/dL (3.4-5.0); BUN/Creatinine Ratio 21.4; Bilirubin, Total 0.5 mg/dL (0.2-1.0); Calcium 8.8 mg/dL (8.5-10.1); Total Protein 6.7 g/dL (6.4-8.2)
[2019-06-28 06:40] LABS: Basophils # (auto) 0.1 uL; Basophils % (auto) 0.5 % (0.0-2.0); Eosinophils # (auto) 0.5 uL; Eosinophils % (auto) 4.5 % (0.0-7.0); Hematocrit 25.7 % (41.0-53.0); Hemoglobin 8.7 g/dL (13.5-17.5); Lymphocytes # (auto) 1.9 uL; Lymphocytes % (auto) 17.6 % (10.0-50.0); Mean Corpuscular Hemoglobin 30.2 pg (28.0-32.0); Monocytes # (auto) 1.2 uL; Monocytes % (auto) 11.4 % (0.0-12.0); Platelet Count (auto) 401 10^3/uL (140-450); Red Blood Cells 2.89 10^6/uL (4.5-5.90); Red Cell Distribution Width 13.6 % (11.8-14.3); White Blood Cell 10.7 10^3/uL (4.4-10.8)
--- NOTE | 2019-06-28 07:02 | NUR ---
OPENING SHIFT NOTE Assumed care of patient from petroleum blending plant operator nurse. patient alert and oriented x4, no signs of distress noted. patient was updated on the plan of care and verbalizes understanding. bed in the lowest position, side rails up x2, and call light in reach.
[2019-06-28] MEDS: IPRATROPIUM BROM 0.5 MG/2.5ML INH SOL NEB SCH ×3 (07:06→15:09)
[2019-06-28] MEDS: ACETYLCYSTEINE 10 %(100MG/ML) SOL 4ML NEB SCH ×2 (07:06→15:09)
[2019-06-28] MEDS: ALBUTEROL SULF 2.5 MG/0.5ML(0.5%) NEB SOLN NEB SCH ×3 (07:06→15:09)
--- NOTE | 2019-06-28 07:06 | NUR ---
RT NOTE; PT TAKING BREATHING TX WITH EZ-PAP. TOLERATING WELL. NO SIGNS OF DISTRESS OR C/O PAIN. WILL CONTINUE TO MONITOR.
--- NOTE | 2019-06-28 07:34 | NUR ---
closing notes endorsed care to day shift nurse, Bibiana Kern
--- NOTE | 2019-06-28 08:51 | NUR ---
Patient ambulating the halls, tolerating well, no signs of distress noted.
[2019-06-28 09:03] VITALS: BP 122/62
[2019-06-28] MEDS: PANTOPRAZOLE 40 MG/10 ML VIAL INJ IV SCH (09:42)
[2019-06-28] MEDS: LEVOFLOXACIN 500MG 100 ML IV SCH (09:42)
[2019-06-28] MEDS: POTASSIUM CHL 20 Meq TABLET PO SCH (09:43)
[2019-06-28] MEDS: DOCUSATE SOD 100 MG CAP PO SCH (09:43)
[2019-06-28] MEDS: PHENAZOPYRIDINE HCL 100 MG TAB PO SCH (09:43)
[2019-06-28] MEDS: ASPirin 81 mg TAB PO SCH (09:44)
[2019-06-28] MEDS: CHLORHEXIDINE 0.12% ORAL rinse 473ML MT SCH (09:44)
[2019-06-28] MEDS: METOPROLOL TARTRATE 25 MG TAB PO SCH (09:44)
[2019-06-28] MEDS: NITROGLYCERIN 0.4MG/HR TOPICAL PATCH TD SCH (09:44)
--- NOTE | 2019-06-28 15:02 | NUR ---
DISCHARGE Discharge instructions given as ordered. Encourage to follow up with PMD as instructed. All questions and concerns addressed. Patient verbalized understanding. Medication reconciliation form completed and copy given to patient. IV removed with catheter intact, pressure dressing applied. Telemetry unit returned to ICU. Patient educated on wound/incision care, the use of LILIANA hose and the Zoll vest. Patient and his verbalize understanding.
--- NOTE | 2019-06-28 15:09 | NUR ---
RT NOTE: TX NOT GIVEN BECAUSE PT IS BEING DISCHARGED WITH FAMILY BY SIDE.
--- NOTE | 2019-06-28 15:51 | NUR ---
Patient taken to vehicle via wheelchair with all personal belongings, accompanied by staff and family member. No distress noted at time of departure.
== END 2019-06-28 15:30 | disposition home health service (06) | DRG 165 ==
LOC: ER 17:53 → TELE 17:54 → DOU IN ICU 22:05 → ICU WEST 06-21 10:21 → TELE-CENTR 06-25 23:11
PROVIDERS: ADMIT Nurse Practitioner; ATTEND Internal Medicine
PROC: 4A023N8 Measurement of Cardiac Sampling and Pressure, Bilateral, Percutaneous Approach (ICD-10-PCS; 2019-06-15)
PROC: B2111ZZ Fluoroscopy of Multiple Coronary Arteries using Low Osmolar Contrast (ICD-10-PCS; 2019-06-15)
PROC: B2151ZZ Fluoroscopy of Left Heart using Low Osmolar Contrast (ICD-10-PCS; 2019-06-15)
PROC: 0210093 Bypass Coronary Artery, One Artery from Coronary Artery with Autologous Venous Tissue, Open Approach (ICD-10-PCS; principal; 2019-06-20)
PROC: 021109W Bypass Coronary Artery, Two Arteries from Aorta with Autologous Venous Tissue, Open Approach (ICD-10-PCS; 2019-06-20)
PROC: 02100Z9 Bypass Coronary Artery, One Artery from Left Internal Mammary, Open Approach (ICD-10-PCS; 2019-06-20)
PROC: 5A1221Z Performance of Cardiac Output, Continuous (ICD-10-PCS; 2019-06-20)
PROC: 06BP0ZZ Excision of Right Saphenous Vein, Open Approach (ICD-10-PCS; 2019-06-20)
PROC: 30233K1 Transfusion of Nonautologous Frozen Plasma into Peripheral Vein, Percutaneous Approach (ICD-10-PCS; 2019-06-22)
PROC: 30233N1 Transfusion of Nonautologous Red Blood Cells into Peripheral Vein, Percutaneous Approach (ICD-10-PCS; 2019-06-22)
PROC: 5A09357 Assistance with Respiratory Ventilation, Less than 24 Consecutive Hours, Continuous Positive Airway Pressure (ICD-10-PCS; 2019-06-22)
PROC: 5A09357 Assistance with Respiratory Ventilation, Less than 24 Consecutive Hours, Continuous Positive Airway Pressure (ICD-10-PCS; 2019-06-23)
PROC: 5A09357 Assistance with Respiratory Ventilation, Less than 24 Consecutive Hours, Continuous Positive Airway Pressure (ICD-10-PCS; 2019-06-24)
PROC: 5A09357 Assistance with Respiratory Ventilation, Less than 24 Consecutive Hours, Continuous Positive Airway Pressure (ICD-10-PCS; 2019-06-25)
PROC: 5A09357 Assistance with Respiratory Ventilation, Less than 24 Consecutive Hours, Continuous Positive Airway Pressure (ICD-10-PCS; 2019-06-26)
DX: I21.4 Non-ST elevation (NSTEMI) myocardial infarction (principal); I46.9 Cardiac arrest, cause unspecified; J96.90 Respiratory failure, unspecified, unspecified whether with hypoxia or hypercapnia; J15.211 Pneumonia due to Methicillin susceptible Staphylococcus aureus; J15.1 Pneumonia due to Pseudomonas; E11.22 Type 2 diabetes mellitus with diabetic chronic kidney disease; S22.20XA Unspecified fracture of sternum, initial encounter for closed fracture; N18.3 Chronic kidney disease, stage 3 (moderate); I25.10 Atherosclerotic heart disease of native coronary artery without angina pectoris; I48.91 Unspecified atrial fibrillation; S22.42XA Multiple fractures of ribs, left side, initial encounter for closed fracture; I49.01 Ventricular fibrillation; X58.XXXA Exposure to other specified factors, initial encounter; I13.10 Hypertensive heart and chronic kidney disease without heart failure, with stage 1 through stage 4 chronic kidney disease, or unspecified chronic kidney disease; D64.9 Anemia, unspecified; E44.1 Mild protein-calorie malnutrition; E87.6 Hypokalemia; J45.909 Unspecified asthma, uncomplicated; Z79.4 Long term (current) use of insulin; Z82.49 Family history of ischemic heart disease and other diseases of the circulatory system; Z86.73 Personal history of transient ischemic attack (TIA), and cerebral infarction without residual deficits; Z79.899 Other long term (current) drug therapy; Y93.89 Activity, other specified; Y92.098 Other place in other non-institutional residence as the place of occurrence of the external cause; Y99.8 Other external cause status; Z68.25 Body mass index [BMI] 25.0-25.9, adult
CPT/HCPCS: 36415; 36600; 70450; 71045; 71250; 74176; 76705; 80048; 80053; 80061; 80307; 81001; 81025; 82805; 82962; 83036; 83735; 83880; 84100; 84443; 84478; 84484; 85007; 85025; 85027; 85379; 85576; 85610; 85730; 86850; 86900; 86901; 86920; 87070; 87077; 87081; 87186; 87205; 93005; 93306; 93460; 93886; 93970; 94002; 94003; 94010; 94640; 94660; C1751; C1768; C9113; G0378; J0153; J0330; J0690; J0696; J1642; J1644; J1815; J1885; J1956; J2250; J2405; J2440; J2704; J2720; J3430; J3480; J7060; P9047

== ENCOUNTER 2019-07-06 14:39 | Emergency (ER) | payer MEDICAID ==
[~2019-07-06] VITALS: Ht 165.1 cm; Wt 68.0 kg
[~2019-07-06 14:39] MED LIST: GABA-339 PO; INSU1INJ19 SC; LISI2.5T47 PO; METF-371 PO; METO-158 PO; PRAV20TA3 PO
[2019-07-06 16:00] VITALS: BP 134/71
[2019-07-06 17:14] LABS: Basophils # (auto) 0.1 uL; Basophils % (auto) 0.5 % (0.0-2.0); Eosinophils # (auto) 0.1 uL; Eosinophils % (auto) 1.2 % (0.0-7.0); Lymphocytes # (auto) 1.6 uL
[2019-07-06 17:17] LABS: Hematocrit 31.1 % (41.0-53.0); Hemoglobin 10.2 g/dL (13.5-17.5); Lymphocytes % (auto) 14.2 % (10.0-50.0); Mean Corpuscular Hemoglobin 28.8 pg (28.0-32.0); Mean Corpuscular Hgb Conc. 32.8 g/dL (32.0-36.0); Mean Corpuscular Volume 87.8 fL (80.0-100.0); Monocytes # (auto) 0.9 uL; Monocytes % (auto) 8.6 % (0.0-12.0); Neutrophils # (auto) 8.3 uL; Neutrophils % (auto) 75.5 % (37.0-80.0); Platelet Count (auto) 661 10^3/uL (140-450); Red Blood Cells 3.54 10^6/uL (4.5-5.90); Red Cell Distribution Width 14.4 % (11.8-14.3)
[2019-07-06 17:33] LABS: Albumin 3.2 g/dL (3.4-5.0); BUN/Creatinine Ratio 20.7; Calcium 8.8 mg/dL (8.5-10.1); Magnesium 2.3 mg/dL (1.6-2.6); Potassium 4.7 mmol/L (3.5-5.1)
[2019-07-06 17:35] LABS: Bilirubin, Total 0.3 mg/dL (0.2-1.0); Total Protein 7.4 g/dL (6.4-8.2)
== END 2019-07-06 17:36 | disposition home or self-care (01) ==
LOC: ER 14:39
DX: R00.2 Palpitations (principal); J45.909 Unspecified asthma, uncomplicated; E11.9 Type 2 diabetes mellitus without complications; E78.5 Hyperlipidemia, unspecified; I10 Essential (primary) hypertension; Z95.1 Presence of aortocoronary bypass graft
CPT/HCPCS: 36415; 80053; 83735; 85025; 93005